=== PATIENT | male | born 1940 | race Caucasian/White ===

== ENCOUNTER → 2024-01-21 | Outpatient (CLI) | payer OTHER | END | disposition home or self-care (01) | LOC: XYW 13:58 | PROVIDERS: ATTEND Student in an Organized Health Care Education/Training Program | DX: R07.9 Chest pain, unspecified (principal); I51.89 Other ill-defined heart diseases | CPT/HCPCS: 93306 ==

== ENCOUNTER → 2024-01-23 | Outpatient (CLI) | payer OTHER ==
[2024-01-23 07:03] LABS: Urine Bacteria None Seen /hpf (None Seen)
[2024-01-23 07:12] LABS: Urine Blood Negative /uL (Negative); Urine Clarity Clear (Clear); Urine Color Yellow (Yellow); Urine Protein, UAD Negative (Negative); Urine Specific Gravity 1.015 (1.001-1.035); Urine Urobilinogen Normal (Negative); Urine WBC 2 /hpf (0 - 3); Urine pH 5.5 (5.0-9.0)
[2024-01-23 07:16] LABS: Basophils # (auto) 0.1 10 ^3/uL (0-0.2); Basophils % (auto) 0.9 % (0.0-2.0); Eosinophils # (auto) 0.2 10 ^3/uL (0-0.8); Eosinophils % (auto) 2.6 % (0.0-7.0); Hematocrit 43.7 % (41.0-53.0); Hemoglobin 14.9 g/dL (13.5-17.5); Lymphocytes # (auto) 2.4 10 ^3/uL (0.4-5.4); Lymphocytes % (auto) 26.7 % (10.0-50.0); Mean Corpuscular Hemoglobin 30.1 pg (28.0-32.0); Mean Corpuscular Volume 88.5 fL (80.0-100.0); Monocytes # (auto) 0.7 10 ^3/uL (0-1.3); Monocytes % (auto) 7.3 % (0.0-12.0); Neutrophils # (auto) 5.7 10 ^3/uL (1.6-8.6); Neutrophils % (auto) 62.5 % (37.0-80.0); Nucleated Red Blood Cells % 0.1 %; Red Blood Cells 4.94 10^6/uL (4.5-5.90); Red Cell Distribution Width 14.7 % (11.8-14.3); White Blood Cell 9.2 10^3/uL (4.4-10.8)
[2024-01-23 07:30] LABS: Alanine Aminotransferase 27 U/L (7-40); Albumin 4.2 g/dL (3.2-4.8); Alkaline Phosphatase 80 U/L (46-116); Anion Gap 5 (5-15); Aspartate Aminotransferase 27 U/L (13-40); BUN/Creatinine Ratio 10.2 (10.0-20.0); Blood Urea Nitrogen 10 mg/dL (9-23); Calcium 9.9 mg/dL (8.5-10.1); Carbon Dioxide 28 mmol/L (20-30); Chloride 107 mmol/L (98-107); Glucose 150 mg/dL (74-106); LDL Cholesterol 75 mg/dL (< 100); Potassium 3.8 mmol/L (3.5-5.1); Sodium 140 mmol/L (136-145); Triglycerides 164 mg/dL (< 150)
[2024-01-23 07:31] LABS: Bilirubin, Total 0.7 mg/dL (0.2-1.0); Cholesterol 130 mg/dL (< 200); HDL Cholesterol 34 mg/dL (40-59); Total Protein 7.4 g/dL (5.7-8.2)
[2024-01-23 07:37] LABS: Creatinine, Urine 94.6 mg/dL (30.0-125.0)
== END | disposition home or self-care (01) ==
LOC: LAB 06:50
PROVIDERS: ATTEND Internal Medicine
DX: E11.65 Type 2 diabetes mellitus with hyperglycemia (principal); E78.5 Hyperlipidemia, unspecified
CPT/HCPCS: 36415; 80053; 80061; 81001; 82043; 82570; 83036; 83880; 85025

== ENCOUNTER → 2024-01-23 | Outpatient (CLI) | payer OTHER ==
[~2024-01-23] VITALS: Ht 175.3 cm; Wt 86.2 kg
[2024-01-23] MEDS: ADENOSINE 72 MG in GIVE UN-DILUTED 0 ML IV ONE (08:42)
== END | disposition home or self-care (01) ==
LOC: XYW 07:13
PROVIDERS: ATTEND Student in an Organized Health Care Education/Training Program
DX: R07.9 Chest pain, unspecified (principal); I10 Essential (primary) hypertension; E11.9 Type 2 diabetes mellitus without complications; E78.5 Hyperlipidemia, unspecified; I25.9 Chronic ischemic heart disease, unspecified; Z91.010 Allergy to peanuts; R06.02 Shortness of breath
CPT/HCPCS: 78452; 93017; A9500; J0153

== ENCOUNTER 2024-02-06 14:58 | Emergency (ER) | payer OTHER ==
[~2024-02-06] VITALS: Ht 175.3 cm; Wt 86.3 kg
[2024-02-06 15:12] VITALS: BP 169/88; RESP 17; O2SAT 98
[2024-02-06 16:32] LABS: Basophils # (auto) 0.1 10 ^3/uL (0-0.2); Basophils % (auto) 1.2 % (0.0-2.0); Eosinophils # (auto) 0.3 10 ^3/uL (0-0.8); Eosinophils % (auto) 4.4 % (0.0-7.0); Hematocrit 38.3 % (41.0-53.0); Hemoglobin 13.5 g/dL (13.5-17.5); Lymphocytes # (auto) 1.4 10 ^3/uL (0.4-5.4); Lymphocytes % (auto) 22.4 % (10.0-50.0); Mean Corpuscular Hemoglobin 30.8 pg (28.0-32.0); Mean Corpuscular Hgb Conc. 35.3 g/dL (32.0-36.0); Mean Corpuscular Volume 87.1 fL (80.0-100.0); Monocytes # (auto) 0.7 10 ^3/uL (0-1.3); Monocytes % (auto) 10.8 % (0.0-12.0); Neutrophils # (auto) 3.7 10 ^3/uL (1.6-8.6); Neutrophils % (auto) 61.2 % (37.0-80.0); Nucleated Red Blood Cells % 0.1 %; Red Cell Distribution Width 14.7 % (11.8-14.3); White Blood Cell 6.1 10^3/uL (4.4-10.8)
[2024-02-06 16:45] VITALS: PULSE 73
[2024-02-06 16:45] LABS: INR 1.08 (0.9-1.15); Partial Thromboplastin Time 26.8 SEC (24.5-34.5); Prothrombin Time 11.4 sec (9.3-11.8)
[2024-02-06 16:55] LABS: Alanine Aminotransferase 31 U/L (7-40); Albumin 3.3 g/dL (3.2-4.8); Alkaline Phosphatase 86 U/L (46-116); Anion Gap 7 (5-15); Aspartate Aminotransferase 30 U/L (13-40); BUN/Creatinine Ratio 7.7 (10.0-20.0); Bilirubin, Total 0.5 mg/dL (0.2-1.0); Blood Urea Nitrogen 7 mg/dL (9-23); Calcium 9.1 mg/dL (8.5-10.1); Carbon Dioxide 28 mmol/L (20-30); Chloride 105 mmol/L (98-107); Glucose 126 mg/dL (74-106); Potassium 3.3 mmol/L (3.5-5.1); Sodium 140 mmol/L (136-145); Total Protein 6.5 g/dL (5.7-8.2)
[2024-02-06] MEDS ORDERED: ACET500T58 PO (18:20)
[2024-02-06] MEDS ORDERED: ALBUAER3 IN (18:20)
[2024-02-06] MEDS ORDERED: DEX4T PO (18:20)
[2024-02-06] MEDS ORDERED: DOXY-286 PO (18:20)
[2024-02-06] MEDS ORDERED: MECL-90 PO (18:22)
[2024-02-06] MEDS ORDERED: ACETAMINOPHEN 500 MG TAB PO ONE (18:30)
== END 2024-02-06 20:00 | disposition home or self-care (01) ==
LOC: ER 14:58
DX: R42 Dizziness and giddiness (principal); R07.89 Other chest pain; J20.9 Acute bronchitis, unspecified; I10 Essential (primary) hypertension
CPT/HCPCS: 36415; 70450; 71250; 72125; 74176; 80053; 83880; 84484; 85025; 85379; 85610; 85730; 93005

== ENCOUNTER → 2024-03-25 | Outpatient (CLI) | payer OTHER ==
[~2024-03-25] MED LIST: ACET500T58 PO; ALBUAER3 IN; ALBUTEROL SULF 2.5 MG/0.5ML(0.5%) NEB SOLN ONE; ATEN-60 PO; ATOR-507 PO; CLOP75TA28 PO; DEX4T PO; DOXY-286 PO; ESMOLOL HCL 10 ML IV ONE; FURO20TA3 PO; GLIP10TA9 PO; INSUINJ37 SC; LIDOCAINE 2% (LOCAL ANESTH.) PF 5ml SDV ONE; LISI20TA56 PO; MECL-90 PO; METH50006 SL; MIDAZOLAM HCL 2MG/2ML 2ml VIAL (1mg/ml) ONE; OMEP20TA PO; ONDANSETRON HCL 4 MG/2 ML VIAL ONE; PROPOFOL 10 MG/ML 20 ML IV ONE; ROCURONIUM 10MG/ML 10ML VIAL IV ONE; SUGAMMADEX 200mg/2ml Vial (100MG/ML) IV ONE; TAMS0.4C36 PO; [UNRECOGNIZED DRUG - CODE] OR; fentaNYL CITRATE 5 ML ONE
== END | disposition home or self-care (01) ==
LOC: RT 08:51
PROVIDERS: ATTEND Internal Medicine Pulmonary Disease
DX: R06.02 Shortness of breath (principal); J84.10 Pulmonary fibrosis, unspecified
CPT/HCPCS: 94060; 94727; 94729

== ENCOUNTER → 2024-04-02 | Outpatient (CLI) | payer OTHER ==
[~2024-04-02] MED LIST changes: -ALBUTEROL SULF 2.5 MG/0.5ML(0.5%) NEB SOLN ONE; -ESMOLOL HCL 10 ML IV ONE; -LIDOCAINE 2% (LOCAL ANESTH.) PF 5ml SDV ONE; -MIDAZOLAM HCL 2MG/2ML 2ml VIAL (1mg/ml) ONE; -ONDANSETRON HCL 4 MG/2 ML VIAL ONE; -PROPOFOL 10 MG/ML 20 ML IV ONE; -ROCURONIUM 10MG/ML 10ML VIAL IV ONE; -SUGAMMADEX 200mg/2ml Vial (100MG/ML) IV ONE; -fentaNYL CITRATE 5 ML ONE
[2024-04-02 09:34] LABS: Triglycerides 125 mg/dL (< 150)
[2024-04-02 09:35] LABS: LDL Cholesterol 85 mg/dL (< 100)
[2024-04-02 09:36] LABS: HDL Cholesterol 33 mg/dL (40-59)
[2024-04-02 09:37] LABS: Cholesterol 134 mg/dL (< 200)
== END | disposition home or self-care (01) ==
LOC: LAB 08:16
PROVIDERS: ATTEND Internal Medicine
DX: E11.9 Type 2 diabetes mellitus without complications (principal)
CPT/HCPCS: 36415; 80061; 83036

== ENCOUNTER 2024-04-03 09:43 | Day surgery (SDC) | payer OTHER ==
[2024-04-02 08:26] LABS: Urine Bacteria None Seen /hpf (None Seen)
[2024-04-02 08:31] LABS: Basophils # (auto) 0.1 10 ^3/uL (0-0.2); Basophils % (auto) 1.2 % (0.0-2.0); Eosinophils # (auto) 0.2 10 ^3/uL (0-0.8); Eosinophils % (auto) 2.8 % (0.0-7.0); Hematocrit 39.3 % (41.0-53.0); Hemoglobin 13.7 g/dL (13.5-17.5); Lymphocytes # (auto) 2.1 10 ^3/uL (0.4-5.4); Lymphocytes % (auto) 29.9 % (10.0-50.0); Mean Corpuscular Hemoglobin 30.9 pg (28.0-32.0); Mean Corpuscular Hgb Conc. 34.8 g/dL (32.0-36.0); Mean Corpuscular Volume 88.7 fL (80.0-100.0); Monocytes # (auto) 0.6 10 ^3/uL (0-1.3); Monocytes % (auto) 8.9 % (0.0-12.0); Neutrophils % (auto) 57.2 % (37.0-80.0); Platelet Count (auto) 225 10^3/uL (140-450); Red Blood Cells 4.43 10^6/uL (4.5-5.90); Red Cell Distribution Width 14.4 % (11.8-14.3)
[2024-04-02 08:42] LABS: Urine Blood Negative /uL (Negative); Urine Clarity Clear (Clear); Urine Color Yellow (Yellow); Urine Hyaline Cast FEW /lpf (0 - 2); Urine Mucus FEW (None Seen); Urine Protein, UAD Negative (Negative); Urine Specific Gravity 1.023 (1.001-1.035); Urine Urobilinogen Normal (Negative); Urine WBC <1 /hpf (0 - 3); Urine pH 5.5 (5.0-9.0)
[2024-04-02 08:55] LABS: INR 1.08 (0.9-1.15); Partial Thromboplastin Time 28.3 SEC (24.5-34.5); Prothrombin Time 11.4 sec (9.3-11.8)
[2024-04-02 09:38] LABS: Alanine Aminotransferase 33 U/L (7-40); Alkaline Phosphatase 97 U/L (46-116); Anion Gap 7 (5-15); BUN/Creatinine Ratio 11.3 (10.0-20.0); Blood Urea Nitrogen 12 mg/dL (9-23); Calcium 9.8 mg/dL (8.7-10.4); Carbon Dioxide 25 mmol/L (20-30); Chloride 108 mmol/L (98-107); Glucose 114 mg/dL (74-106); Potassium 4.1 mmol/L (3.5-5.1); Sodium 140 mmol/L (136-145)
[2024-04-02 09:39] LABS: Albumin 4.2 g/dL (3.2-4.8); Aspartate Aminotransferase 26 U/L (13-40)
[2024-04-02 09:40] LABS: Bilirubin, Total 0.6 mg/dL (0.2-1.0)
[~2024-04-03] VITALS: Ht 175.3 cm; Wt 83.9 kg
[~2024-04-03 09:43] MED LIST changes: -ALBUAER3 IN; -DEX4T PO; -DOXY-286 PO; -MECL-90 PO; -TAMS0.4C36 PO; +TAMS0.4C39 PO
[2024-04-03] MEDS ORDERED: SUGAMMADEX 200mg/2ml Vial (100MG/ML) IV ONE (09:44)
[2024-04-03] MEDS ORDERED: ROCURONIUM 10MG/ML 10ML VIAL IV ONE (09:44)
[2024-04-03] MEDS ORDERED: CIPROFLOXACIN 400MG/200ML 200 ML IV ONE (10:42)
[2024-04-03] MEDS ORDERED: CHLORHEXIDINE 4% TOPICAL soln 118ml TOP ONE (12:46)
[2024-04-03 14:20] VITALS: TEMP 97.5; O2SAT 97
[2024-04-03] MEDS ORDERED: HYDROmorphone HCL 2 MG/ML VL/or syr IV PRN ×2 (14:45)
[2024-04-03] MEDS: ONDANSETRON HCL 4 MG/2 ML VIAL IV ONE (15:08)
[2024-04-03 15:50] VITALS: BP 138/71; PULSE 56; RESP 19; O2SAT 98
== END 2024-04-03 15:56 | disposition home or self-care (01) ==
LOC: SUR 09:43
PROVIDERS: ATTEND Urology
DX: N40.1 Benign prostatic hyperplasia with lower urinary tract symptoms (principal); I11.0 Hypertensive heart disease with heart failure; I50.9 Heart failure, unspecified; E11.9 Type 2 diabetes mellitus without complications; K21.9 Gastro-esophageal reflux disease without esophagitis; Z79.899 Other long term (current) drug therapy; Z95.5 Presence of coronary angioplasty implant and graft; Z86.73 Personal history of transient ischemic attack (TIA), and cerebral infarction without residual deficits; Z87.09 Personal history of other diseases of the respiratory system; Z98.890 Other specified postprocedural states; Z88.8 Allergy status to other drugs, medicaments and biological substances; Z91.041 Radiographic dye allergy status
CPT/HCPCS: 36415; 52601; 80053; 81001; 82962; 85025; 85610; 85730; 87086; 88305; 88342; J0744; J2001; J2250; J2405; J2704; J3010

== ENCOUNTER → 2024-06-02 | Outpatient (CLI) | payer OTHER ==
[2024-06-02 08:39] LABS: Potassium 3.7 mmol/L (3.5-5.1)
== END | disposition home or self-care (01) ==
LOC: LAB 08:02
PROVIDERS: ATTEND Internal Medicine
DX: I10 Essential (primary) hypertension (principal); E11.9 Type 2 diabetes mellitus without complications; J44.9 Chronic obstructive pulmonary disease, unspecified; E78.5 Hyperlipidemia, unspecified
CPT/HCPCS: 36415; 82550; 83735; 84132; 84443

== ENCOUNTER 2024-07-12 19:03 | Inpatient (IN) | payer OTHER ==
[~2024-07-12] VITALS: Ht 175.3 cm; Wt 85.1 kg
--- NOTE | 2024-07-12 19:19 | ED.PDOC ---
HPI Comments 83 y.o male with PMH of MO x3, pulmonary fibrosis, COPD, DM, HTN, CVA, and PTCA x6, presents to the ED for a chief complaint of chest pain associated with SOB that started today around 1000am. Patient reports pain is constant, sharp in nature, non radiating, and has no alleviating factors. Patient ran out of his NTG at home. Patient reports chest pain now is similar to his previous MO's. Patient denies any nausea, vomiting, diarrhea, abdominal pain, fever, chills, leg swelling, or back pain. Patient denies any substance, alcohol or tobacco use. Chief Complaint: Chest Pain Time Seen by MD: 19:04 Primary Care Provider: FAUSTO Reviewed Notes: Nurses Notes, Medications, Allergies Allergies: Coded Allergies: Diphenhydramine (Unverified Allergy, Intermediate, Rash, muscle cramps, 04/02/24) Iodine (Verified Allergy, Unknown, 01/23/24) Metformin (Unverified Adverse Reaction, Intermediate, Rash, muscle cramps, diarrhea, 04/02/24) Home Meds Active Scripts Acetaminophen (Acetaminophen) 500 Mg Tab, 500 MG PO QIDPRN PRN for 10 Days, #40 TAB Prov:MADDIE CALL S DO 02/06/24 Reported Medications Mecobalamin (B12) 5,000 Mcg Sub, 5000 MCG SL DAILY, INJ 04/02/24 Chromium-Cinnamon (CINNAMON PLUS CHROMIUM) 1 Cap Cap, 1 CAP OR DAILY, CAP 04/02/24 Atorvastatin Calcium (Lipitor) 40 Mg Tab, 40 MG PO DAILY, TAB 04/02/24 Clopidogrel Bisulfate (Plavix) 75 Mg Tab, 75 MG PO DAILY, TAB 04/02/24 Lisinopril (Lisinopril) 20 Mg Tab, 10 MG PO QPM, TAB 24 Glipizide (Glipizide) 10 Mg Tab, 10 MG PO DAILY, TAB 24 Omeprazole (Gnp Omeprazole) 20 Mg Tab, 20 MG PO QAM, TAB 04/02/24 Atenolol (Atenolol) 25 Mg Tab, 25 MG PO QPM, TAB 04/02/24 Tamsulosin Hcl (Tamsulosin Hcl) 0.4 Mg Cap, 0.4 MG PO DAILY, CAP 04/02/24 Furosemide (Furosemide) 20 Mg Tab, 20 MG PO DAILY, TAB 04/02/24 Insulin Glargine (Lantus Solostar) 100 Unit/Ml Inj, 30 ML SC QPM, INJ 04/02/24 Information Source: Patient Mode of Arrival: Ambulatory Severity: Moderate Timing: Hours Duration: Since onset Location: Substernal Quality: Sharp Onset: At Rest Cardiac Risk Factors: HTN, Diabetes History of: MO Associated Signs and Symptoms: SOB Past Medical History PAST MEDICAL HISTORY: COPD, CVA, DM, HTN, MO (3) Past Medical History (Other): pulmonary fibrosis Surgical History: PTCA Family History Family History: Reviewed,noncontributory to illness Social History Smoker: Non-Smoker Alcohol: Denies ETOH Use Drugs: Denies Drug Use Lives In: Home Constitutional: denies: chills, diaphoresis, fatigue, fever, malaise, sweats, weakness, others EENTM: denies: blurred vision, double vision, ear bleeding, ear discharge, ear drainage, ear pain, ear ringing, eye pain, eye redness, hearing loss, mouth pain, mouth swelling, nasal discharge, nose bleeding, nose congestion, nose pain, photophobia, tearing, throat pain, throat swelling, voice changes, others Respiratory: denies: cough, hemoptysis, orthopnea, SOB at rest, shortness of breath, SOB with excertion, stridor, wheezing, others Cardiovascular: denies: chest pain, dizzy spells, diaphoresis, Dyspnea on exertion, edema, irregular heart beat, left arm pain, lightheadedness, palpitations, PND, syncope, others Gastrointestinal: denies: abdomen distended, abdominal pain, blood streaked bowels, constipated, diarrhea, dysphagia, difficulty swallowing, hematemesis, melena, nausea, poor appetite, poor fluid intake, rectal bleeding, rectal pain, vomiting, others Genitourinary: denies: burning, dysuria, flank pain, frequency, hematuria, incontinence, penile discharge, penile sore, pain, testicle pain, testicle swelling, urgency, others Neurological: denies: dizziness, fainting, headache, left sided numbness, left sided weakness, numbness, paresthesia, pre-existing deficit, right sided numbne ss, right sided weakness, seizure, speech problems, tingling, tremors, weakness, others Musculoskeletal: denies: back pain, gout, joint pain, joint swelling, muscle pain, muscle stiffness, neck pain, others Integumetry: denies: bruises, change in color, change in hair/nails, dryness, laceration, lesions, lumps, rash, wounds, others Allergic/Immunocompromised: denies: Difficulty Healing, Frequent Infections, Hives, Itching, others Hematologic/Lymphatic: denies: anemia, blood clots, easy bleeding, easy bruising, swollen glands, others Endocrine: denies: excessive hunger, excessive sweating, excessive thirst, excessive urination, flushing, intolerance to cold, intolerance to heat, unexplained weight gain, unexplained weight loss, others Psychiatric: denies: anxiety, bipolar disorder, depression, hopeless, panic disorder, schizophrenia, sleepless, suicidal, others All Other Systems: Reviewed and Negative Physical Exam General Appearance: Moderate Distress HEENT: Normal ENT Inspection, Pharynx Normal, TMs Normal Neck: Full Range of Motion, Non-Tender, Normal, Normal Inspection Respiratory: Chest Non-Tender, No Accessory Muscle Use, Other (Coarse breath sounds) Cardiovascular: No Edema, No JVD, No Murmur, No Gallop, Normal Peripheral Pulses, Regular Rate/Rhythm Breast Exam: Deferred Gastrointestinal: No Organomegaly, Non Tender, No Pulsatile Mass, Normal Bowel Sounds, Soft Genitalia: Deferred Pelvic: Deferred Rectal: Deferred Extremities: No calf tenderness, Normal capillary refill, Normal inspection, Normal range of motion, Non-tender, No pedal edema Musculoskeletal : Apperance: Normal Neurologic: Alert, supervisor of communications II-XII nml as Tested, No Motor Deficits, Normal Affect, Normal Mood, No Sensory Deficits Cerebellar Function: Normal Reflexes: Normal Skin: Dry, Normal Color, Warm Peripheral Pulses: 3+ Radial (R), 3+ Radial (L) Lymphatic: No Adenopathy Was a procedure done? Was a procedure done?: No CP Differential Dx Differential Diagnosis: A-fib, A-Flutter, Angina, Anxiety / Panic Attack, Atrial Dysrhythmia, Electrolyte Disorder, MO Differential Diagnosis: Angina, Chest Wall Pain, Cholelithiasis, Costochondritis, Esophageal reflux/spasm, Gastritis, Myocardial Infarction, Pericarditis X-Ray, Labs, Meds, VS Vital Signs Date Time Temp Pulse Resp B/P (MAP) Pulse Ox O2 Delivery O2 Flow Rate FiO2 11/2/24 19:17 99.6 89 21 141/73 (95) 98 Lab Test 07/12/24 19:12 Range/Units White Blood Count 14.7 H 4.4-10.8 10^3/uL Red Blood Count 4.98 4.5-5.90 10^6/uL Hemoglobin 15.1 13.5-17.5 g/dL Hematocrit 44.5 41.0-53.0 % Mean Corpuscular Volume 89.5 80.0-100.0 fL Mean Corpuscular Hemoglobin 30.3 28.0-32.0 pg Mean Corpuscular Hemoglobin Concent 33.9 32.0-36.0 g/dL Red Cell Distribution Width 14.1 11.8-14.3 % Platelet Count 233 140-450 10^3/uL Mean Platelet Volume 8.5 6.9-10.8 fL Neutrophils (%) (Auto) 72.2 37.0-80.0 % Lymphocytes (%) (Auto) 17.1 10.0-50.0 % Monocytes (%) (Auto) 8.1 0.0-12.0 % Eosinophils (%) (Auto) 1.7 0.0-7.0 % Basophils (%) (Auto) 0.9 0.0-2.0 % Neutrophils # (Auto) 10.6 H 1.6-8.6 10 ^3/uL Lymphocytes # (Auto) 2.5 0.4-5.4 10 ^3/uL Monocytes # (Auto) 1.2 0-1.3 10 ^3/uL Eosinophils # (Auto) 0.2 0-0.8 10 ^3/uL Basophils # (Auto) 0.1 0-0.2 10 ^3/uL Nucleated Red Blood Cells 0.1 % Sodium Level 137 136-145 mmol/L Potassium Level 3.8 3.5-5.1 mmol/L Chloride Level 105 98-107 mmol/L Carbon Dioxide Level 26 20-31 mmol/L Anion Gap 6 5-15 Blood Urea Nitrogen 11 9-23 mg/dL Creatinine 1.04 0.700-1.30 mg/dL Glomerular Filtration Rate Calc 72 >90 mL/min BUN/Creatinine Ratio 10.6 10.0-20.0 Serum Glucose 130 H 74-106 mg/dL Calcium Level 9.9 8.7-10.4 mg/dL Total Bilirubin 0.7 0.2-1.0 mg/dL Aspartate Amino Transferase (AST) 40 13-40 U/L Alanine Aminotransferase (ALT) 46 H 7-40 U/L Alkaline Phosphatase 113 46-116 U/L Troponin I High Sensitivity 5 </=54 ng/L Total Protein 7.6 5.7-8.2 g/dL Albumin 4.4 3.2-4.8 g/dL Patient alert. Complaining of chest pain. EKG reviewed does show chronic changes. Has COPD. Spoke with Cardiology about the EKG pain NSTEMI. Will need cardiac catheterization. Was given aspirin. Was given nitro. WBC slightly elevated. Pneumonitis. Was given steroid pain Was given Levaquin. Cardiac marker within normal limits. Strong risk factors for coronary artery disease. Explained to the patient. Time of 1ST Reevaluation: 19:11 Reevaluation 1ST: Unchanged Patient Education/Counseling: Diagnosis, Treatment Family Education/Counseling: No Family Present Departure 1 Departure Time of Disposition: 20:09 Impression: Primary Impression: NSTEMI (non-ST elevated myocardial infarction) Additional Impression: Pneumonitis Disposition: ADMITTED INPATIENT Admit to: Med Surg Condition: Guarded Critical Care Note Critical Care Time?: Yes Stability Stability form required: No Heart Score Heart Score: Heart Score Response (Comments) Value History Highly Suspicious 2 EKG Normal 0 Age >65 2 Risk Factors >3 or Hx ASHD 2 Troponin Normal limit 0 Total 6 I personally scribed for SIMON PRETTY MD ([email or web address]) on 07/12/24 at 19:19. Electronically submitted by Florinda Nagel ([facility]). SIMON PRETTY MD Jul 12, 2024 19:19
[2024-07-12 19:21] LABS: Basophils # (auto) 0.1 10 ^3/uL (0-0.2); Basophils % (auto) 0.9 % (0.0-2.0); Eosinophils # (auto) 0.2 10 ^3/uL (0-0.8); Eosinophils % (auto) 1.7 % (0.0-7.0); Hematocrit 44.5 % (41.0-53.0); Hemoglobin 15.1 g/dL (13.5-17.5); Lymphocytes # (auto) 2.5 10 ^3/uL (0.4-5.4); Lymphocytes % (auto) 17.1 % (10.0-50.0); Mean Corpuscular Hemoglobin 30.3 pg (28.0-32.0); Mean Corpuscular Hgb Conc. 33.9 g/dL (32.0-36.0); Mean Corpuscular Volume 89.5 fL (80.0-100.0); Monocytes # (auto) 1.2 10 ^3/uL (0-1.3); Monocytes % (auto) 8.1 % (0.0-12.0); Neutrophils # (auto) 10.6 10 ^3/uL (1.6-8.6); Neutrophils % (auto) 72.2 % (37.0-80.0); Nucleated Red Blood Cells % 0.1 %; Platelet Count (auto) 233 10^3/uL (140-450); Red Blood Cells 4.98 10^6/uL (4.5-5.90); Red Cell Distribution Width 14.1 % (11.8-14.3); White Blood Cell 14.7 10^3/uL (4.4-10.8)
[2024-07-12 19:35] LABS: Alanine Aminotransferase 46 U/L (7-40); Albumin 4.4 g/dL (3.2-4.8); Alkaline Phosphatase 113 U/L (46-116); Anion Gap 6 (5-15); Aspartate Aminotransferase 40 U/L (13-40); BUN/Creatinine Ratio 10.6 (10.0-20.0); Bilirubin, Total 0.7 mg/dL (0.2-1.0); Blood Urea Nitrogen 11 mg/dL (9-23); Calcium 9.9 mg/dL (8.7-10.4); Carbon Dioxide 26 mmol/L (20-31); Chloride 105 mmol/L (98-107); Glucose 130 mg/dL (74-106); Potassium 3.8 mmol/L (3.5-5.1); Sodium 137 mmol/L (136-145); Total Protein 7.6 g/dL (5.7-8.2)
--- NOTE | 2024-07-12 19:53 | DVH ---
CHEST RADIOGRAPH Indication:CHEST PAIN Technique: Single frontal view of the chest was obtained Comparison: None FINDINGS: Lines and Tubes: None Lungs: Bibasilar infiltrates and or atelectasis. Pleura: No pleural effusions. No pneumothorax. Cardiomediastinal contours: Upper limits of normal. Bones: No acute osseous abnormality. IMPRESSION: 1. Marginal cardiomegaly. 2. Bibasilar infiltrates and or atelectasis.
[2024-07-12] MEDS: levoFLOXacin 500MG 100 ML IV ONE (20:15)
[2024-07-12] MEDS: IPRATROPIUM BROM 0.5 MG/2.5ML INH SOL NEB ONE (20:27)
[2024-07-12] MEDS: ALBUTEROL SULF 2.5 MG/0.5ML(0.5%) NEB SOLN NEB ONE (20:27)
[2024-07-12] MEDS: methylPREDNISolone SOD SUCC 125 MG/2 ML VL IV ONE (20:54)
[2024-07-12] MEDS: AZITHROMYCIN 500MG/ 250ML 250 ML IV ONE (21:12)
[2024-07-12] MEDS ORDERED: DEXTROSE (50%) 50ML SYRG IV PRN (21:15)
[2024-07-12] MEDS ORDERED: cloNIDine HCL 0.1 MG TAB PO PRN (21:15)
[2024-07-12] MEDS ORDERED: ACETAMINOPHEN 325 MG TAB PO PRN (21:15)
[2024-07-12] MEDS ORDERED: DOCUSATE SOD 100 MG CAP PO PRN (21:15)
[2024-07-12] MEDS ORDERED: ONDANSETRON HCL 4 MG/2 ML VIAL IV PRN (21:15)
[2024-07-12 21:20] VITALS: BP 141/73; PULSE 77; RESP 18; TEMP 99.6; O2SAT 96
[2024-07-12] MEDS: methylPREDNISolone SOD SUCC 40 MG/ML VL IV SCH (22:00)
[2024-07-12] MEDS: SODIUM CHLOR 0.9% PF (SALINE LOCK) 10ML VIAL/SYR IV SCH (22:10)
--- NOTE | 2024-07-12 22:54 | DVHHP2 ---
History of Present Illness Reason for Visit: COPD with acute exacerbation History of Present Illness The patient is a 83-year-old male with multiple past medical history including COPD, CVA, and diabetes mellitus who presented to [facility] ED with complaint of shortness of breaths. Patient reports symptoms progressively get worse with chest pain, sharp in nature, constant, nonradiating, getting worse that prompted this visit. Patient was seen and evaluated in the ED, laboratory data shows WBC 14.7, platelets 233, sodium 137, potassium 3.8, BUN 11, creatinine 1.04, glucose 130, AST 40, ALT 46, troponin 5, blood pressure 141/73, heart rate 77, temperature 99.6 F, O2 saturation 96% on oxygen. Chest x-ray revealing marginal cardiomegaly, bibasilar infiltrate and or atelectasis. Please see medication orders section in the computer. On my assessment, patient denied chest pain at this moment, no headache, no dizziness, no diaphoresis, no shortness of breath, no nausea, no vomiting, no fever, no chills. Patient was admitted for further evaluation and medical management. Past Medical History COPD, CVA, DM, HTN, ID (3), Pulmonary fibrosis Past Surgical History PTCA x6 Family History Reviewed, noncontributory to the management of this case. Past Social History The patient lives at home, denies smoking, alcohol or illicit drugs abuse. Review of Systems Constitutional: Yes: Weakness; No: Fever, Chills, Sweats, Malaise, Other Eyes: No: Pain, Vision change, Conjunctivae inflammation, Eyelid inflammation, Other, Redness ENT: No: Ear pain, Ear discharge, Nose pain, Nose discharge, Nose congestion, Mouth pain, Mouth swelling, Throat pain, Throat swelling, Other Respiratory: Shortness of breath; No: Cough, Dry, SOB with excertion, Wheezing, Hemoptysis, Pleuritic Pain, Sputum, Wheezing, Other Cardiovascular: Chest Pain; No: Palpitations, Orthopnea, Paroxysmal Noc. D yspnea, Edema, Lt Headedness, Other Gastrointestinal: No: Nausea, Vomiting, Abdominal Pain, Diarrhea, Constipation, Melena, Hematochezia, Other Genitourinary: No Dysuria, No Frequency, No Incontinence, No Hematuria, No Retention, No Other Musculoskeletal: No: other, neck pain, shoulder pain, arm pain, back pain, hand pain, leg pain, foot pain Skin: No: Rash, Lesions, Jaundice, Bruising, Other Neurological: No: Weakness, Numbness, Incoordination, Change in speech, Confusion, Seizures, Other Allergies: Coded Allergies: Diphenhydramine (Unverified Allergy, Intermediate, Rash, muscle cramps, 04/02/24) Iodine (Verified Allergy, Unknown, 01/23/24) Metformin (Unverified Adverse Reaction, Intermediate, Rash, muscle cramps, diarrhea, 04/02/24) Medications Current Medications Medications Dose Ordered Sig/Dano Route Start Time Stop Time Status Last Admin Dose Admin Azithromycin 250 ml @ 125 mls/hr DAILY IV 07/13/24 10:00 Albuterol 2.5 mg Q4HPRN PRN NEB 07/12/24 21:15 Ipratropium [place] 0.5 mg Q4HPRN PRN NEB 07/12/24 21:15 Methylprednisolone Sodium Succinate 40 mg Q8HR IV 07/12/24 22:00 Famotidine 20 mg Q12HR IV 07/12/24 22:00 Atorvastatin Calcium 20 mg HS PO 07/13/24 22:00 Clopidogrel Bisulfate 75 mg DAILY PO 07/13/24 10:00 Diagnostic Test (Pha) 1 strip ACHS 07/12/24 22:00 Insulin Human Regular ACHS SC 07/12/24 22:00 Dextrose 50 ml UD PRN IV 07/12/24 21:15 Sodium Chloride 10 ml Q8HR IV 07/12/24 22:00 07/12/24 22:10 10 ML Acetaminophen/ Hydrocodone Bitart 1 tab Q4HP PRN PO 07/12/24 21:15 Ondansetron HCl 4 mg Q4HP PRN IV 07/12/24 21:15 Docusate Sodium 100 mg BIDPRN PRN PO 07/12/24 21:15 Acetaminophen 500 mg Q6HP PRN PO 07/12/24 21:15 Atenolol 25 mg BID PO 07/12/24 22:00 Clonidine HCl 0.1 mg Q4HP PRN PO 07/12/24 21:15 Exam Vital Signs Vital Signs Date Time Temp Pulse Resp B/P (MAP) Pulse Ox O2 Delivery O2 Flow Rate FiO2 07/12/24 21:20 99.6 77 18 141/73 96 21 99.6 07/12/24 20:33 Room Air* 0 General Appearance: Alert, Oriented X3, Cooperative, No acute distress HEENT: Atraumatic, PERRLA, EOMI, Mucous membr. moist/pink Respiratory: Clear to auscultation, Normal air movement Cardiovascular: Regular rate, Normal S1, Normal S2, No murmurs Abdominal: Normal bowel sounds, Soft, No tenderness, No hepatospenomegaly, No masses Extremities: No clubbing, No cyanosis, No edema, Normal pulses, No tenderness/swelling Skin: No rashes, No breakdown, No significant lesion Neuro: Normal speech, Normal tone, Sensation intact, Cranial nerves 3-12 NL, Reflexes 2+, Other (Generalized weakness) Psych/Mental Status: Mental status NL, Mood NL Labs/Xrays Labs Test 07/12/24 22:08 07/12/24 22:04 07/12/24 19:12 Range/Units POC Glucose 204 H 70-106 mg/dl Troponin I High Sensitivity 4 </=54 ng/L White Blood Count 14.7 H 4.4-10.8 10^3/uL Red Blood Count 4.98 4.5-5.90 10^6/uL Hemoglobin 15.1 13.5-17.5 g/dL Hematocrit 44.5 41.0-53.0 % Mean Corpuscular Volume 89.5 80.0-100.0 fL Mean Corpuscular Hemoglobin 30.3 28.0-32.0 pg Mean Corpuscular Hemoglobin Concent 33.9 32.0-36.0 g/dL Red Cell Distribution Width 14.1 11.8-14.3 % Platelet Count 233 140-450 10^3/uL Mean Platelet Volume 8.5 6.9-10.8 fL Neutrophils (%) (Auto) 72.2 37.0-80.0 % Lymphocytes (%) (Auto) 17.1 10.0-50.0 % Monocytes (%) (Auto) 8.1 0.0-12.0 % Eosinophils (%) (Auto) 1.7 0.0-7.0 % Basophils (%) (Auto) 0.9 0.0-2.0 % Neutrophils # (Auto) 10.6 H 1.6-8.6 10 ^3/uL Lymphocytes # (Auto) 2.5 0.4-5.4 10 ^3/uL Monocytes # (Auto) 1.2 0-1.3 10 ^3/uL Eosinophils # (Auto) 0.2 0-0.8 10 ^3/uL Basophils # (Auto) 0.1 0-0.2 10 ^3/uL Nucleated Red Blood Cells 0.1 % Sodium Level 137 136-145 mmol/L Potassium Level 3.8 3.5-5.1 mmol/L Chloride Level 105 98-107 mmol/L Carbon Dioxide Level 26 20-31 mmol/L Anion Gap 6 5-15 Blood Urea Nitrogen 11 9-23 mg/dL Creatinine 1.04 0.700-1.30 mg/dL Glomerular Filtration Rate Calc 72 >90 mL/min BUN/Creatinine Ratio 10.6 10.0-20.0 Serum Glucose 130 H 74-106 mg/dL Calcium Level 9.9 8.7-10.4 mg/dL Total Bilirubin 0.7 0.2-1.0 mg/dL Aspartate Amino Transferase (AST) 40 13-40 U/L Alanine Aminotransferase (ALT) 46 H 7-40 U/L Alkaline Phosphatase 113 46-116 U/L Total Protein 7.6 5.7-8.2 g/dL Albumin 4.4 3.2-4.8 g/dL PATIENT: MISHEL CALVIN ACCT: [id number] UNIT: [id number] : 1940 LOC: ER ROOM / BED: / AGE / SEX: 83 / M ADM STATUS: REG ER SERVICE 03 ORDERING PHYSICIAN: SIMON PRETTY MD PROCEDURE(s): CXRP - CHEST PORTABLE REASON: CHEST PAIN ORDER NUMBER(s): [id number], ACCESSION NUMBER(s): [id number] CHEST RADIOGRAPH Indication:CHEST PAIN Technique: Single frontal view of the chest was obtained Comparison: None FINDINGS: Lines and Tubes: None Lungs: Bibasilar infiltrates and or atelectasis. Pleura: No pleural effusions. No pneumothorax. Cardiomediastinal contours: Upper limits of normal. Bones: No acute osseous abnormality. IMPRESSION: 1. Marginal cardiomegaly. 2. Bibasilar infiltrates and or atelectasis. Assessment/Plan Assessment/Plan Acute chest pain Leukocytosis, unspecified Pneumonia, unspecified organism COPD with acute exacerbation Plan 1. Admit to telemetry unit 2. Breathing treatment 3. Pain control management 4. IV antibiotic management 5. Management of fluids and electrolytes 6. Consultation for hospitalist 7. Diagnostic test chest x-ray 8. DVT prophylaxis on aspirin 9. Repeat labs CBC, CMP in a.m. 10. Home medication reviewed and reconciled 11. Continue with current medical management 12. Treatment plan discussed with patient and RN. Patient verbalized understanding. Plan discussed with: Patient, Other (RN) My Orders Orders - SRIRAM SNOW DNP Procedure Category Date Status Time Azithromycin 500mg/ PHA 07/13/24 In Process 250ml (Zithromax 50 10:00 Albuterol Medneb PHA 07/12/24 In Process (Ventolin Medneb) 21:15 Ipratropium Medneb PHA 07/12/24 In Process (Atrovent Medneb) 21:15 Methylprednisolone PHA 07/12/24 In Process Sod Succ (Solu Medrol 22:00 Famotidine Injection PHA 07/12/24 In Process (Pepcid Injection) 22:00 Clopidogrel Bisulfate PHA 07/13/24 In Process (Plavix) 10:00 Consistent DIET 07/13/24 Transmitted Carb(Ccho)Diabetes Breakfast Glucose Blood PHA 07/12/24 In Process (Accu-Chek Comfort 22:00 Insulin R (Human) PHA 07/12/24 In Process (Insulin R) 22:00 Dextrose 50% Syringe PHA 07/12/24 In Process 21:15 Allergies ROSETTA 07/12/24 In Process 21:15 Code Status CODE 07/12/24 Transmitted 21:15 Sodium Chloride Lock PHA 07/12/24 In Process (Saline Lock Ns) 22:00 Oxygen Per Hour RT 07/12/24 Transmitted 21:15 Hydrocodone-Acet PHA 07/12/24 In Process 5/325mg Tab ([place] 21:15 Ondansetron Hcl PHA 07/12/24 In Process (Zofran) 21:15 Docusate Sodium PHA 07/12/24 In Process Capsule (Colace 21:15 Fall Risk Precautions ROSETTA 07/12/[address] 21:15 Complete Blood Count LAB 07/13/24 Verified 04:00 Comprehensive LAB 07/13/24 Verified Metabolic Panel 04:00 Condition: Serious ROSETTA 07/12/24 In Process 21:15 Acetaminophen Tablet PHA 07/12/24 In Process (Tylenol Tablet) 21:15 Sequential ROSETTA 07/12/24 In Process Compression Device *Consult CONS 07/12/24 Transmitted / 21:15 Atenolol Tablet PHA 07/12/24 In Process (Tenormin Tablet) 22:00 Clonidine Hcl Tablet PHA 07/12/24 In Process (Catapres Tablet) 21:15 Atorvastatin (Lipitor) PHA 07/13/24 In Process 22:00 Problem List: (1) Acute chest pain (2) Leukocytosis, unspecified (3) COPD with acute exacerbation (4) Pneumonia, unspecified organism Date of Service: Jul 12, 2024 Billing Provider: SRIRAM SNOW DNP Common Visit Codes: [id number] INP/OBS CARE (HIGH) SRIRAM SNOW DNP Jul 12, 2024 22:54
[2024-07-12] MEDS ORDERED: NITROGLYCERIN 0.4 MG SL TAB SL PRN (23:00)
[2024-07-12] MEDS ORDERED: MORPHINE SULFATE INJ 2 MG/ml SYRG IV PRN (23:00)
[2024-07-12] MEDS: InsuLIN REG 1unit/0.01ml Soln (100units/ml) SC SCH (23:03)
[2024-07-12] MEDS: FAMOTIDINE (10MG/ML) 2ML VL IV SCH (23:03)
[2024-07-12] MEDS: ACCU-CHEK COMFORT CURVE STRIP VI SCH (23:03)
[2024-07-12] MEDS: ATENOLOL 25 MG TAB PO SCH (23:06)
[2024-07-13] VITALS (13 sets, daily range): BP systolic 102–121; BP diastolic 51–66; PULSE 60–84; RESP 16–21; TEMP 97.5–98.8; O2SAT 94–98
[2024-07-13] MEDS: HYDROcodone-ACET 5/325MG TAB PO PRN (01:01)
[2024-07-13] MEDS ORDERED: SAWCAP2 PO (01:32)
[2024-07-13] MEDS ORDERED: LISI20TA56 PO (01:32)
[2024-07-13] MEDS ORDERED: MELO15TA29 PO (01:32)
[2024-07-13] MEDS ORDERED: OMEP20TA PO (01:32)
[2024-07-13] MEDS ORDERED: ALBUPOW25 XX (01:32)
[2024-07-13] MEDS ORDERED: ATOR-507 PO (01:32)
[2024-07-13] MEDS ORDERED: NITR0.4S29 SL (01:32)
[2024-07-13 05:47] LABS: Basophils # (auto) 0 10 ^3/uL (0-0.2); Basophils % (auto) 0.2 % (0.0-2.0); Eosinophils # (auto) 0 10 ^3/uL (0-0.8); Hematocrit 41.5 % (41.0-53.0); Hemoglobin 14.3 g/dL (13.5-17.5); Lymphocytes # (auto) 0.9 10 ^3/uL (0.4-5.4); Lymphocytes % (auto) 9.7 % (10.0-50.0); Mean Corpuscular Hemoglobin 30.7 pg (28.0-32.0); Mean Corpuscular Hgb Conc. 34.5 g/dL (32.0-36.0); Mean Corpuscular Volume 89.1 fL (80.0-100.0); Monocytes # (auto) 0.2 10 ^3/uL (0-1.3); Monocytes % (auto) 1.8 % (0.0-12.0); Neutrophils # (auto) 7.8 10 ^3/uL (1.6-8.6); Neutrophils % (auto) 88.3 % (37.0-80.0); Platelet Count (auto) 205 10^3/uL (140-450); Red Blood Cells 4.66 10^6/uL (4.5-5.90); Red Cell Distribution Width 13.6 % (11.8-14.3); White Blood Cell 8.8 10^3/uL (4.4-10.8)
[2024-07-13 06:14] LABS: Alanine Aminotransferase 38 U/L (7-40); Albumin 3.9 g/dL (3.2-4.8); Alkaline Phosphatase 96 U/L (46-116); Anion Gap 8 (5-15); Aspartate Aminotransferase 23 U/L (13-40); BUN/Creatinine Ratio 11.1 (10.0-20.0); Blood Urea Nitrogen 11 mg/dL (9-23); Calcium 9.6 mg/dL (8.7-10.4); Carbon Dioxide 22 mmol/L (20-31); Chloride 105 mmol/L (98-107); Glucose 210 mg/dL (74-106); Potassium 4.4 mmol/L (3.5-5.1); Sodium 135 mmol/L (136-145)
--- NOTE | 2024-07-13 06:15 | ECG ---
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
[2024-07-13] MEDS: CLOPIDOGREL BISULFATE 75 MG TAB PO SCH (08:37)
[2024-07-13 08:49] LABS: INR 1.14 (0.9-1.15); Partial Thromboplastin Time 29.4 SEC (24.5-34.5)
[2024-07-13] MEDS ORDERED: AZITHROMYCIN 500MG/ 250ML 250 ML IV SCH (10:00)
[2024-07-13] MEDS: AZITHROMYCIN 500MG/ 250ML 250 ML IV SCH (10:11)
[2024-07-13 11:42] LABS: Rapid Influenza A Negative (Negative); Rapid Influenza B Negative (Negative)
[2024-07-13 11:43] LABS: COVID19 ANTIGEN SOFIA FIA NEGATIVE (NEGATIVE)
[2024-07-13 11:50] LABS: Urine Bacteria None Seen /hpf (None Seen)
[2024-07-13 11:59] LABS: Urine Blood Negative /uL (Negative); Urine Clarity Clear (Clear); Urine Color Yellow (Yellow); Urine Mucus FEW (None Seen); Urine Protein, UAD TRACE (Negative); Urine Specific Gravity 1.023 (1.001-1.035); Urine Urobilinogen Normal (Negative); Urine WBC 2 /hpf (0 - 3)
[2024-07-13 12:23] LABS: Amphetamine Screen, Urine Neg (NEGATIVE); Barbiturate Scree,Urine Neg (NEGATIVE); Benzodiazephine Screen, Urine Neg (NEGATIVE)
[2024-07-13 12:24] LABS: Cannabinoid Screen, Urine Neg (NEGATIVE); Cocaine Screen, Urine Neg (NEGATIVE); Opiate Scree,Urine Neg (NEGATIVE); Phencyclidine Screen, Urine Neg (NEGATIVE)
--- NOTE | 2024-07-13 13:56 | DVHPNRES ---
Progress Note Date Seen: Jul 13, 2024 Resident Creating Document: RANDY MESA RESIDENT Medical Necessity Reason Pt with a Central, PICC or Fol: No Subjective Review of Systems This is a 83-year-old male patient with PMHx of CAD status post 6 SHANEL 2004 to 2016, history of CVA 2017 status post tPA, COPD on no home oxygen, diabetes mellitus type 2 for the past 15 years on Lantus, BPH status post TURP 2023 who presented to the ER with a chief complaint of chest pain and cough. Patient reports with the chest pain started 07/12 around 10:00 a.m. on rest which waxes and wanes in his located in epigastrium. Chest pain is pressure-like in nature and radiates to both of his shoulders, exacerbates on deep breathing and exertion but does not relieve on rest. He denies taking any nitroglycerin for the chest pain. Associated factors include nausea and dizziness but no vomiting/palpitation/diaphoresis. Patient also reports chronic shortness of breath on activities of daily living and orthopnea and PND, also reports chronic cough with green/yellow phlegm. He did not increase his inhaler usage recently. 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 PMH/PSH: See HPI Social history Works as a teacher, Lives with his , quit smoking, denies drinking or illicit drug use Home medications: Lisinopril 20 mg daily, atorvastatin 40 mg daily, omeprazole 20 mg daily, Lantus 30 units daily, best 3 2 puffs b.i.d. daily, extreme tablet 10 mg daily saw palmetto use. Patient seen and examined at bedside. Not in acute distress, reports feeling fine. Chest x-ray reviewed, shows cardiomegaly with bilateral basilar infiltrate. Echocardiogram/cardiology consultation/COVID and influenza testing pending. Objective vital signs Vital Sign Date Time Temp Pulse Resp B/P (MAP) Pulse Ox O2 Delivery O2 Flow Rate FiO2 07/13/24 09:30 98 Nasal Cannula* 2 28 07/13/24 09:00 97.5 60 21 116/63 (80) 97.5 Total Intake and Output 07/12/24 07/12/24 07/13/24 15:00 23:00 07:00 Intake Total 125 ml 125 ml Output Total 200 ml Balance 125 ml -75 ml medications Current Medications Medications Dose Ordered Sig/Dano Route Start Time Stop Time Status Last Admin Dose Admin Albuterol 2.5 mg Q4HPRN PRN NEB 07/12/24 21:15 Ipratropium [place] 0.5 mg Q4HPRN PRN NEB 07/12/24 21:15 Methylprednisolone Sodium Succinate 40 mg Q8HR IV 07/12/24 22:00 07/13/24 06:17 40 MG Famotidine 20 mg Q12HR IV 07/12/24 22:00 07/13/24 08:37 20 MG Atorvastatin Calcium 20 mg HS PO 07/13/24 22:00 Clopidogrel Bisulfate 75 mg DAILY PO 07/13/24 10:00 07/13/24 08:37 75 MG Diagnostic Test (Pha) 1 strip ACHS 07/12/24 22:00 07/13/24 10:14 1 STRIP Insulin Human Regular ACHS SC 07/12/24 22:00 07/13/24 10:18 6 UNITS Dextrose 50 ml UD PRN IV 07/12/24 21:15 Sodium Chloride 10 ml Q8HR IV 07/12/24 22:00 07/13/24 06:19 10 ML Acetaminophen/ Hydrocodone Bitart 1 tab Q4HP PRN PO 07/12/24 21:15 07/13/24 01:01 1 TAB Ondansetron HCl 4 mg Q4HP PRN IV 07/12/24 21:15 Docusate Sodium 100 mg BIDPRN PRN PO 07/12/24 21:15 Acetaminophen 500 mg Q6HP PRN PO 07/12/24 21:15 Atenolol 25 mg BID PO 07/12/24 22:00 07/13/24 08:37 25 MG Clonidine HCl 0.1 mg Q4HP PRN PO 07/12/24 21:15 Nitroglycerin 0.4 mg Q5MINP PRN SL 07/12/24 23:00 Morphine Sulfate 2 mg Q30M PRN IV 07/12/24 23:00 Azithromycin 250 ml @ 125 mls/hr DAILY IV 07/13/24 10:00 07/16/24 23:55 07/13/24 10:11 125 MLS/HR Insulin Glargine 10 units DAILY@1000 SC 07/14/24 10:00 Ceftriaxone Sodium 50 ml @ 100 mls/hr DAILY@09 IV 07/14/24 09:00 Examination Elderly male patient lying in bed, in no acute distress General: Well-built, afebrile, palor, mucosae are moist Cardiovascular: Regular S1 and S2. No murmurs, gallops or rubs. No JVD elevation. No pedal edema Respiratory: Normal B/L air entry on room air. Dull breath sounds on bibasilar auscultation. Abdomen: Soft, nontender, nondistended, normoactive bowel sounds, no rebound tenderness, no organomegaly, no masses Genitourinary: Deferred MSK/skin: Mobilizes 4 limbs. Skin is dry and warm Neurological: No motor, no sensitive deficits, normal speech. Pupils are isocoric and reactive. Psych/Mental Status: A/Ox4 laboratory and microbiology Laboratory Tests 07/13/24 04:24 Test 07/13/24 04:24 Range/Units Serum Glucose 210 H 74-106 mg/dL Labs and/or images reviewed: Labs reviewed by me, Image(s) reviewed by me Problem List/Assessment/Plan Problem List/Assessment/Plan Community-acquired pneumonia, Gram-positive and Gram-negative IV ceftriaxone and azithromycin starting 07/13 Sputum culture with induction pending Chest x-ray shows bibasilar infiltrate Nebulized treatment with ipratropium and albuterol Influenza and COVID testing negative MRSA nares pending Acute chest pain rule out ACS History of CVA 1 year back status post tPA CAD status post 6DES [id number] Patient does not take aspirin or Plavix at home EKG shows regular rhythm, nonspecific ST changes Troponin 4, 4 , 5 BNP 99 Echocardiogram pending Cardiology consulted Diabetes mellitus type 2-hemoglobin A1c Continue insulin Lantus 10 units daily along with mild ISS Dyslipidemia Atorvastatin 20 mg HS daily Hypertension Continue lisinopril 20 mg daily GERD Continue pantoprazole 40 mg daily Plan discussed with patient and his at bedside, all questions have been answered Goals of care discussed with patient for more than 20 minutes, full code status Case discussed with Dr. Gonzalez Plan discussed with: Patient, Spouse (At bedside) My Orders My Orders Orders - RANDY MESA Procedure Category Date Status Time Azithromycin 500mg/ PHA 07/13/24 In Process 250ml (Zithromax 50 10:00 Vitamin B12 LAB 07/13/24 In Process 08:19 Vitamin D, 25-Hydroxy LAB 07/13/24 In Process 08:19 Mrsa Screen BABAK 07/13/24 Logged 08:19 Respiratory Culture BABAK 07/13/24 Logged W/ Gs 08:19 Sputum Induction RT 07/13/24 Logged 08:19 Pt Request For Service PT 07/13/24 Logged 08:19 Echo 2d Mode Cardiac US 07/13/24 Logged DOP 10:44 Free T3 LAB 07/13/24 In Process 10:46 Free T4 (Free LAB 07/13/24 In Process Thyroxine) 10:46 Incentive Spirometry ORDERS 07/13/24 Transmitted Q 1hr 10:46 Electrocardigram EKG 07/13/24 Logged 10:46 Troponin-I Hs LAB 07/13/24 Logged 10:46 Date of Service: Jul 13, 2024 Billing Provider: DONNA GONZALEZ DO Common Visit Codes: [id number] INP/OBS CARE(HIGH) RANDY MESA RESIDENT Jul 13, 2024 13:56 DONNA GONZALEZ DO Jul 21, 2024 07:14
--- NOTE | 2024-07-13 18:06 | DVHINCON2 ---
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 pt often needs 2 SL NTG but this time ran out and called 911. ecg shows SR< TWI inferiorly. pt had stress mpi done january 2024 showing no ischemia. Past Medical History reviewed Family History: Alcoholism G8 FATHER Alzheimer's disease Allergies: Coded Allergies: Diphenhydramine (Unverified Allergy, Intermediate, Rash, muscle cramps, 04/02/24) Iodine (Verified Allergy, Unknown, 01/23/24) Metformin (Unverified Adverse Reaction, Intermediate, Rash, muscle cramps, diarrhea, 04/02/24) Home Meds Active Scripts Acetaminophen (Acetaminophen) 500 Mg Tab, 500 MG PO QIDPRN PRN for 10 Days, #40 TAB Prov:ISABEL CALLJose COLIVA S DO 02/06/24 Reported Medications Albuterol Sulfate (Albuterol Sulfate) Sulfate Pow, 1 XX, POW 07/13/24 [place]-Zinc (Saw [place] 450-15 mg) 1 Cap Cap, 1 CAP PO, CAP 07/13/24 Atorvastatin Calcium (Lipitor) 40 Mg Tab, 1 TAB PO QPM, #90 TAB 1 Refill 07/13/24 Nitroglycerin (NTROSTAT SUBLINGUAL) 0.4 Mg Sl, 0.4 MG SL PRN, TAB *MAY REPEAT EVERY 5 MINUTES X 3 TOTAL IF NO RELIEF, INITIATE ANALGESIC THERAPY. NOTIFY PHYSICIAN *Do not crush. 07/13/24 Omeprazole (Gnp Omeprazole) 20 Mg Tab, 1 TAB PO DAILY, #90 TAB 1 Refill 07/13/24 Meloxicam (Meloxicam) 15 Mg Tab, 1 TAB PO DAILY, #30 TAB 07/13/24 Lisinopril (Lisinopril) 20 Mg Tab, 1 TAB PO DAILY, #30 TAB 5 Refills 07/13/24 Mecobalamin (B12) 5,000 Mcg Sub, 5000 MCG SL DAILY, INJ 04/02/24 Chromium-Cinnamon (CINNAMON PLUS CHROMIUM) 1 Cap Cap, 1 CAP OR DAILY, CAP 04/02/24 Atorvastatin Calcium (Lipitor) 40 Mg Tab, 40 MG PO DAILY, TAB 04/02/24 Clopidogrel Bisulfate (Plavix) 75 Mg Tab, 75 MG PO DAILY, TAB 04/02/24 Lisinopril (Lisinopril) 20 Mg Tab, 10 MG PO QPM, TAB 04/02/24 Glipizide (Glipizide) 10 Mg Tab, 10 MG PO DAILY, TAB 04/02/24 Omeprazole (Gnp Omeprazole) 20 Mg Tab, 20 MG PO QAM, TAB 04/02/24 Atenolol (Atenolol) 25 Mg Tab, 25 MG PO QPM, TAB 04/02/24 Tamsulosin Hcl (Tamsulosin Hcl) 0.4 Mg Cap, 0.4 MG PO DAILY, CAP 04/02/24 Furosemide (Furosemide) 20 Mg Tab, 20 MG PO DAILY, TAB 04/02/24 Insulin Glargine (Lantus Solostar) 100 Unit/Ml Inj, 30 ML SC QPM, INJ 04/02/24 Current Medications Current Medications Medications (Trade) Dose Ordered Sig/Dano Route PRN Reason Start Time Stop Time Status Last Admin Azithromycin 250 ml @ 125 mls/hr DAILY IV 07/13/24 10:00 07/13/24 08:22 DC Albuterol (Ventolin Medneb) 2.5 mg Q4HPRN PRN NEB SHORTNESS OF BREATH 07/12/24 21:15 Ipratropium [place] (Atrovent Medneb) 0.5 mg Q4HPRN PRN NEB SHORTNESS OF BREATH 07/12/24 21:15 Methylprednisolone Sodium Succinate (Solu Medrol) 40 mg Q8HR IV 07/12/24 22:00 07/13/24 15:03 DC 07/13/24 14:34 Famotidine (Pepcid Injection) 20 mg Q12HR IV 07/12/24 22:00 07/13/24 15:03 DC 07/13/24 08:37 Atorvastatin Calcium (Lipitor) 20 mg HS PO 07/13/24 22:00 Clopidogrel Bisulfate (Plavix) 75 mg DAILY PO 07/13/24 10:00 07/13/24 15:03 DC 07/13/24 08:37 Diagnostic Test (Pha) (Accu-Chek Comfort Curve T) 1 strip ACHS 07/12/24 22:00 07/13/24 16:48 Insulin Human Regular (InsuLIN R) ACHS SC 07/12/24 22:00 07/13/24 16:51 Dextrose 50 ml UD PRN IV Blood Sugar LESS THAN 60 07/12/24 21:15 Sodium Chloride (Saline Lock Ns) 10 ml Q8HR IV 07/12/24 22:00 07/13/24 14:34 Acetaminophen/ Hydrocodone Bitart ([place] 5/325MG Tab) 1 tab Q4HP PRN PO MODERATE PAIN (4-6 PAIN SCALE) 07/12/24 21:15 07/13/24 01:01 Ondansetron HCl (Zofran) 4 mg Q4HP PRN IV NAUSEA / VOMITING 07/12/24 21:15 Docusate Sodium (Colace Capsule) 100 mg BIDPRN PRN PO FOR CONSTIPATION 07/12/24 21:15 Acetaminophen (Tylenol Tablet) 500 mg Q6HP PRN PO PAIN SCALE 1-3 OR TEMP>100.4 07/12/24 21:15 Atenolol (Tenormin Tablet) 25 mg BID PO 07/12/24 22:00 07/13/24 15:03 DC 07/13/24 08:37 Clonidine HCl (Catapres Tablet) 0.1 mg Q4HP PRN PO SBP>150 07/12/24 21:15 07/13/24 15:03 DC Nitroglycerin (Ntrostat Sublingual) 0.4 mg Q5MINP PRN SL FOR CHEST PAIN 07/12/24 23:00 Morphine Sulfate 2 mg Q30M PRN IV FOR CHEST PAIN 07/12/24 23:00 Azithromycin 250 ml @ 125 mls/hr DAILY IV 07/13/24 10:00 07/16/24 23:55 07/13/24 10:11 Insulin Glargine (Lantus) 10 units DAILY@1000 SC 07/14/24 10:00 Ceftriaxone Sodium 50 ml @ 100 mls/hr DAILY@09 IV 07/14/24 09:00 Pantoprazole Sodium (Protonix Tablet) 40 mg DAILY@0600 PO 07/14/24 06:00 Review of Systems 10 pt ros otherwise negative Vital Signs Vital Signs Date Time Temp Pulse Resp B/P (MAP) Pulse Ox O2 Delivery O2 Flow Rate FiO2 07/13/24 13:00 97.7 65 19 102/66 (78) 97 97.7 07/13/24 09:30 Nasal Cannula* 2 28 Physical Exam nad s1 s2 rrr ctab soft nt/nd no edema Labs/Diagnostic Data Labs Test 07/13/24 16:46 07/13/24 15:07 07/13/24 10:50 07/13/24 08:30 Range/Units POC Glucose 221 H 70-106 mg/dl Troponin I High Sensitivity < 3 L </=54 ng/L Influenza Type A Antigen Negative Negative Influenza Type B Antigen Negative Negative SARS-CoV-2 Antigen (Rapid) Negative NEGATIVE Urine Color Yellow Yellow Urine Clarity Clear Clear Urine pH 6.0 5.0-9.0 Urine Specific [place] 1.023 1.001-1.035 Urine Protein Trace H Negative Urine Ketones Negative Negative Urine Blood Negative Negative /uL Urine Nitrite Negative Negative Urine Bilirubin Negative Negative Urine Urobilinogen Normal Negative mg/dL Urine Leukocyte Esterase Negative Negative /uL Urine RBC 3 0 - 3 /hpf Urine WBC 2 0 - 3 /hpf Urine Squamous Epithelial Cells Few <5 /hpf Urine Bacteria None seen None Seen /hpf Urine Mucus Few None Seen Urine Glucose Trace Normal mg/dL Urine Opiates Screen Neg NEGATIVE Urine Fentanyl Screen Neg NEGATIVE Urine Barbiturates Screen Neg NEGATIVE Urine Phencyclidine Screen Neg NEGATIVE Urine Amphetamines Screen Neg NEGATIVE Urine Benzodiazepines Screen Neg NEGATIVE Urine Cocaine Screen Neg NEGATIVE Urine Cannabinoids Screen Neg NEGATIVE Test 07/13/24 04:24 Range/Units White Blood Count 8.8 # 4.4-10.8 10^3/uL Red Blood Count 4.66 4.5-5.90 10^6/uL Hemoglobin 14.3 13.5-17.5 g/dL Hematocrit 41.5 41.0-53.0 % Mean Corpuscular Volume 89.1 80.0-100.0 fL Mean Corpuscular Hemoglobin 30.7 28.0-32.0 pg Mean Corpuscular Hemoglobin Concent 34.5 32.0-36.0 g/dL Red Cell Distribution Width 13.6 11.8-14.3 % Platelet Count 205 140-450 10^3/uL Mean Platelet Volume 9.1 6.9-10.8 fL Neutrophils (%) (Auto) 88.3 H 37.0-80.0 % Lymphocytes (%) (Auto) 9.7 L 10.0-50.0 % Monocytes (%) (Auto) 1.8 0.0-12.0 % Eosinophils (%) (Auto) 0.0 0.0-7.0 % Basophils (%) (Auto) 0.2 0.0-2.0 % Neutrophils # (Auto) 7.8 1.6-8.6 10 ^3/uL Lymphocytes # (Auto) 0.9 0.4-5.4 10 ^3/uL Monocytes # (Auto) 0.2 0-1.3 10 ^3/uL Eosinophils # (Auto) 0 0-0.8 10 ^3/uL Basophils # (Auto) 0 0-0.2 10 ^3/uL Nucleated Red Blood Cells 0.0 % Prothrombin Time 12.0 H 9.3-11.8 sec Prothrombin Time INR 1.14 0.9-1.15 Activated Partial Thromboplast Time 29.4 24.5-34.5 SEC Sodium Level 135 L 136-145 mmol/L Potassium Level 4.4 3.5-5.1 mmol/L Chloride Level 105 98-107 mmol/L Carbon Dioxide Level 22 20-31 mmol/L Anion Gap 8 5-15 Blood Urea Nitrogen 11 9-23 mg/dL Creatinine 0.99 0.700-1.30 mg/dL Glomerular Filtration Rate Calc 77 >90 mL/min BUN/Creatinine Ratio 11.1 10.0-20.0 Serum Glucose 210 H 74-106 mg/dL Calcium Level 9.6 8.7-10.4 mg/dL Total Bilirubin 1.0 0.2-1.0 mg/dL Aspartate Amino Transferase (AST) 23 13-40 U/L Alanine Aminotransferase (ALT) 38 7-40 U/L Alkaline Phosphatase 96 46-116 U/L B-Type Natriuretic Peptide 99.24 0-100 pg/mL Total Protein 7.0 5.7-8.2 g/dL Albumin 3.9 3.2-4.8 g/dL Thyroid Stimulating Hormone (TSH) 0.24 L 0.55-4.78 uIU/mL Assessment ACS hx of cad s/p pci htn hl IDDM ckd Plan/Recommendation pt has classic textbook angina which is accerlerating and undoubtedly has signifcant CAD recommend C for eval at this time given symptoms and recent 7 months stress mpi which was - offered LHC vs medical therapy, pt wishes to proceed with LHC pt clearly aware of severity of underlying cad, high risk nature, possibility of no option or intervention either cont maximal medical therapy iodine contrast allergy--may need pre treatment Plan discussed with: Patient DANILO BLAND MD Jul 13, 2024 18:06
[2024-07-13] MEDS ORDERED: methylPREDNISolone SOD SUCC 1,000 MG in SODIUM CHL 0.9% 250 ML IV ONE (18:15)
[2024-07-13] MEDS: ALBUTEROL SULF 2.5 MG/0.5ML(0.5%) NEB SOLN NEB PRN (20:58)
[2024-07-13] MEDS: IPRATROPIUM BROM 0.5 MG/2.5ML INH SOL NEB PRN (20:58)
[2024-07-13] MEDS: ATORVASTATIN 20 MG TAB PO SCH (21:31)
[2024-07-14] VITALS (13 sets, daily range): BP systolic 102–150; BP diastolic 52–73; PULSE 50–89; RESP 14–71; TEMP 97.6–98.9; O2SAT 16–98
[2024-07-14] MEDS: PANTOPRAZOLE 40 MG TAB PO SCH (06:29)
--- NOTE | 2024-07-14 08:44 | DVHSR ---
APPROVED REPORT EXAM: Two-dimensional and M-mode echocardiogram with Doppler and color Doppler. Blood Pressure: 116/63 mmHg INDICATION EF RISK FACTORS Height: 5'9", Weight: 187 DIMENSIONS LVDd4.0 (3.8-5.7cm)LA (2D)3.6 (1.9-4.0cm)Aortic Root4.1 (2.0-3.7cm) LVDs2.7 (2.5-4.0cm)LA (MM) (1.9-4.0cm)Aortic Cusp Exc2.0 (1.5-2.0cm) EF (%) 60.0 (55-70%)Rt. Atrium3.6 (1.9-4.0cm)Asc. Aorta cm IVSd1.3 (0.7-1.1cm)RV (D)3.8 (1.8-2.4cm) PWd1.2 (0.7-1.1cm) Mitral Valve MitralMitral Stenosis E wave0.71m/sMV Mean GR.mmHg A wave1.07m/sMV Peak GR.mmHg E/A ratio0.72D MVAcm2 DECEL [id number] 1/2 Timems Aortic Valve Aortic ValveAortic Stenosis V10.88m/Pola Mean GR.3mmHg V21.12m/Pola Peak GR.5mmHg LVOT Diameter2.1 (1.8-2.4cm)Doppler AVA2.72cm2 Pulmonic Valve V21.23m/s Tricuspid Valve TR Velocity2.89m/s [id number] Conclusion lvef 55-60% by visual estimate moderate LVH apical hypoknesis mild RV moderate enlargement
[2024-07-14] MEDS: LIDOCAINE 2%HCL (LOCAL ANESTH.) INJ 20ML MDV ONE (11:05)
[2024-07-14] MEDS: fentaNYL CITRATE 100 MCG/2 ML VL ONE (11:05)
[2024-07-14] MEDS: HEPARIN SODIUM (PORCINE) 5000 UNITS/ML 1ML VIAL ONE (11:05)
[2024-07-14] MEDS: MIDAZOLAM HCL 2MG/2ML 2ml VIAL (1mg/ml) ONE (11:05)
[2024-07-14] MEDS: VERAPAMIL 2.5MG/ML INJ 2ML VIAL IV ONE (11:05)
[2024-07-14] MEDS: methylPREDNISolone SOD SUCC 125 MG/2 ML VL ONE (11:06)
[2024-07-14] MEDS: FAMOTIDINE (10MG/ML) 2ML VL IV ONE (11:06)
[2024-07-14] MEDS: SODIUM CHL 0.9% 50 ML ONE (11:06)
[2024-07-14] MEDS: ANGIOMAX 250 MG VIAL IV ONE (11:06)
[2024-07-14 11:16] LABS: Free T3 2.84 pg/mL (2.3-4.2)
[2024-07-14 11:22] LABS: Free T4 (Free Thyroxine) 0.83 ng/dL (0.89-1.76)
[2024-07-14] MEDS ORDERED: IODIXANOL 320MG/ML 100ML BTL IV ONE (11:24)
--- NOTE | 2024-07-14 11:26 | DVHOP2 ---
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 PREOPERATIVE DIAGNOSES: ACS POSTOP DIAGNOSIS: CAD DESCRIPTION OF PROCEDURE: The patient or appropriate family signed informed co nsent understanding the risks, benefits and alternatives of the procedure, they wished to proceed. The patient was brought to the cardiac laborer carpentry dock in [place] state. The patient was prepped in a sterile fashion. Sedation was used per cardiac cath protocol. I administered 2 mL of 2% lidocaine to the right wrist. With an antegrade front wall puncture. I cannulated the right radial artery and placed a 6-[place] slender. Next, an intra-arterial spasmolytic was administered. Next, a - 5 [place] catheter and XB 3.5 guide and were used for coronary angiogram and LVEDP measurement and pressure pullback. At the completion of procedure, all guides and wires were removed, and there were no immediate complications. FINDINGS: RCA: Moderate vessel off the right sinus of Valsalva, there is no severe flow limiting stenosis. patent prox RCA stent. mid to distal RCA has mild to moderate 40% stenosis LEFT MAIN: Moderate size left main, it bifurcates into LAD and circumflex. its short LM. distal LM has disease into LAD. CIRCUMFLEX: Moderate caliber vessel coming off the left main with no flow limiting stenosis. ostial CX has 50% stenosis . OM1 has early takeoff and is stumped 100%. mid CX has widely patent stent giving off OM2 that is moderate size with patent stent. distal CX in av groove is patent LAD: LAD is a moderate caliber vessel coming of the left main. ostial moderate disease to prox LAD has a 80% heavily calcific nodular lesion. mid LAD has stent with 75% iSR within in. CONCLUSIONS: 1. severe LAD stenosis PLAN: Aggressive risk factor modification and medical management for the patient. DAPT x 1 year uninterrupted recommend eval at [place] for cabg eval vs PCI complex high dose anti anginal theapy statin ranexa isosorbide DANILO BLAND MD Jul 14, 2024 11:26
--- NOTE | 2024-07-14 11:28 | DVHPN2 ---
Progress Note Date Seen: Jul 14, 2024 Medical Necessity Reason Pt with a Central, PICC or Fol: No Subjective Other Systems: sp c ath Objective vital signs Vital Sign Date Time Temp Pulse Resp B/P (MAP) Pulse Ox O2 Delivery O2 Flow Rate FiO2 07/14/24 09:00 98.1 58 18 142/73 (96) 96 98.1 07/13/24 20:58 Nasal Cannula 2.0 07/13/24 20:58 28 Total Intake and Output 07/13/24 07/13/24 07/14/24 15:00 23:00 07:00 Intake Total 800 ml 420 ml Output Total 600 ml Balance 800 ml -180 ml medications Current Medications Medications Dose Ordered Sig/Dano Route Start Time Stop Time Status Last Admin Dose Admin Albuterol 2.5 mg Q4HPRN PRN NEB 07/12/24 21:15 07/13/24 20:58 2.5 MG Ipratropium [place] 0.5 mg Q4HPRN PRN NEB 07/12/24 21:15 07/13/24 20:58 0.5 MG Atorvastatin Calcium 20 mg HS PO 07/13/24 22:00 07/13/24 21:31 20 MG Diagnostic Test (Pha) 1 strip ACHS 07/12/24 22:00 07/14/24 06:29 1 STRIP Insulin Human Regular ACHS SC 07/12/24 22:00 07/14/24 06:29 3 UNITS Dextrose 50 ml UD PRN IV 07/12/24 21:15 Sodium Chloride 10 ml Q8HR IV 07/12/24 22:00 07/14/24 06:28 10 ML Acetaminophen/ Hydrocodone Bitart 1 tab Q4HP PRN PO 07/12/24 21:15 07/13/24 01:01 1 TAB Ondansetron HCl 4 mg Q4HP PRN IV 07/12/24 21:15 Docusate Sodium 100 mg BIDPRN PRN PO 07/12/24 21:15 Acetaminophen 500 mg Q6HP PRN PO 07/12/24 21:15 Nitroglycerin 0.4 mg Q5MINP PRN SL 07/12/24 23:00 Morphine Sulfate 2 mg Q30M PRN IV 07/12/24 23:00 Azithromycin 250 ml @ 125 mls/hr DAILY IV 07/13/24 10:00 07/16/24 23:55 07/13/24 10:11 125 MLS/HR Insulin Glargine 10 units DAILY@1000 SC 07/14/24 10:00 Ceftriaxone Sodium 50 ml @ 100 mls/hr DAILY@09 IV 07/14/24 09:00 Pantoprazole Sodium 40 mg DAILY@0600 PO 07/14/24 06:00 07/14/24 06:29 40 MG Examination: GENERAL:Abnormal, HEENT:Abnormal, LUNGS:Abnormal, CVS:Abnormal, ABDOMEN:Abnormal laboratory and microbiology Laboratory Tests 07/13/24 04:24 Test 07/13/24 04:24 Range/Units Serum Glucose 210 H 74-106 mg/dL Problem List/Assessment/Plan Problem List/Assessment/Plan cad ACS htn hl rcommend asa 81 mg plavix 75 mg daily atorvastatin high dose isosorbide ranexa beta jigar outpt eval at [facility] for high risk pci vs cabg---please dw social work /case reviewer for HMO designation and ideally get appt set up or approvde prior to DC home Plan discussed with: Patient My Orders My Orders Orders - DANILO BLAND MD Procedure Category Date Status Time Cl Coronary Cath W/O CL 07/13/[address] [facility] 18:06 Investigator Internal Affairs: Obtain ORDERS 07/13/24 Transmitted Consent For: 18:06 Cl Left Heart Cath CL 07/14/24 Taken 07:29 Post Cath Vital Signs ROSETTA 07/14/24 In Process Q 15min Post Cath Activity ROSETTA 07/14/24 In Process Protocol 11:20 Communication Order ORDERS 07/14/24 Transmitted 11:20 Consistent DIET 07/14/24 Transmitted [facility]Diabetes Lunch Date of Service: Jul 14, 2024 Billing Provider: DANILO BLAND MD Common Visit Codes: NOT BILLABLE DANILO BLAND MD Jul 14, 2024 11:28
[2024-07-14] MEDS: INSULIN LANTUS (GLARGINE) 1 /0.01ml (100units/ml) SC SCH (12:39)
[2024-07-14] MEDS: cefTRIAXone 1GM/50ML D5W 50 ML IV SCH (13:00)
--- NOTE | 2024-07-14 15:17 | ECG ---
[facility] Test Date: 2024-07-12 Test Time: 19:07:10 Pat Name: MISHEL CALVIN Department: ED Room: 0248T A Gender: M [employer]vass Manager: YENNI : 1940 Requested By: SIMON PRETTY Order Number: [id number] Reading MD: Mario Link Measurements Intervals [place] Rate: 95 P: 35 MA: 203 QRS: -46 QRSD: 121 T: 104 QT: 348 QTc: 438 Interpretive Statements Sinus rhythm LVH with IVCD, LAD and secondary repol abnrm inferior lateral ST segment changes are nonspecific. Probable RV involvement, suggest recording right precordial leads Baseline wander in lead(s) V1 Electronically Signed On 07-17-2024 11:06:09 PST by Mario Link Please click the below link to view image of tracing.
[2024-07-14] MEDS ORDERED: ASPI1TAB19 PO (16:52)
[2024-07-14] MEDS ORDERED: AUG875T PO (16:52)
[2024-07-14] MEDS ORDERED: RANO500T3 PO (16:52)
[2024-07-14] MEDS ORDERED: ISOS1TAB28 PO (17:09)
--- NOTE | 2024-07-14 17:25 | DVHDSRES ---
Discharge Summary Date of Admission Resident Creating Document: RANDY MESA RESIDENT Jul 12, 2024 at 22:53 Date of Discharge: Jul 14, 2024 Admitting Diagnosis Chest pain Labs/Diagnostic Data: Laboratory Results Test 07/14/24 12:28 07/13/24 15:07 07/13/24 10:50 07/13/24 08:30 POC Glucose 151 mg/dl (70-106) Troponin I High Sensitivity < 3 ng/L (</=54) Influenza Type A Antigen Negative (Negative) Influenza Type B Antigen Negative (Negative) SARS-CoV-2 Antigen (Rapid) Negative (NEGATIVE) Urine Color Yellow (Yellow) Urine Clarity Clear (Clear) Urine pH 6.0 (5.0-9.0) Urine Specific Gervais 1.023 (1.001-1.035) Urine Protein Trace (Negative) Urine Ketones Negative (Negative) Urine Blood Negative /uL (Negative) Urine Nitrite Negative (Negative) Urine Bilirubin Negative (Negative) Urine Urobilinogen Normal mg/dL (Negative) Urine Leukocyte Esterase Negative /uL (Negative) Urine RBC 3 /hpf (0 - 3) Urine WBC 2 /hpf (0 - 3) Urine Squamous Epithelial Cells Few /hpf (<5) Urine Bacteria None seen /hpf (None Seen) Urine Mucus Few (None Seen) Urine Glucose Trace mg/dL (Normal) Urine Opiates Screen Neg (NEGATIVE) Urine Fentanyl Screen Neg (NEGATIVE) Urine Barbiturates Screen Neg (NEGATIVE) Urine Phencyclidine Screen Neg (NEGATIVE) Urine Amphetamines Screen Neg (NEGATIVE) Urine Benzodiazepines Screen Neg (NEGATIVE) Urine Cocaine Screen Neg (NEGATIVE) Urine Cannabinoids Screen Neg (NEGATIVE) Test 07/13/24 04:24 White Blood Count 8.8 10^3/uL (4.4-10.8) Red Blood Count 4.66 10^6/uL (4.5-5.90) Hemoglobin 14.3 g/dL (13.5-17.5) Hematocrit 41.5 % (41.0-53.0) Mean Corpuscular Volume 89.1 fL (80.0-100.0) Mean Corpuscular Hemoglobin 30.7 pg (28.0-32.0) Mean Corpuscular Hemoglobin Concent 34.5 g/dL (32.0-36.0) Red Cell Distribution Width 13.6 % (11.8-14.3) Platelet Count 205 10^3/uL (140-450) Mean Platelet Volume 9.1 fL (6.9-10.8) Neutrophils (%) (Auto) 88.3 % (37.0-80.0) Lymphocytes (%) (Auto) 9.7 % (10.0-50.0) Monocytes (%) (Auto) 1.8 % (0.0-12.0) Eosinophils (%) (Auto) 0.0 % (0.0-7.0) Basophils (%) (Auto) 0.2 % (0.0-2.0) Neutrophils # (Auto) 7.8 10 ^3/uL (1.6-8.6) Lymphocytes # (Auto) 0.9 10 ^3/uL (0.4-5.4) Monocytes # (Auto) 0.2 10 ^3/uL (0-1.3) Eosinophils # (Auto) 0 10 ^3/uL (0-0.8) Basophils # (Auto) 0 10 ^3/uL (0-0.2) Nucleated Red Blood Cells 0.0 % Prothrombin Time 12.0 sec (9.3-11.8) Prothrombin Time INR 1.14 (0.9-1.15) Activated Partial Thromboplast Time 29.4 SEC (24.5-34.5) Sodium Level 135 mmol/L (136-145) Potassium Level 4.4 mmol/L (3.5-5.1) Chloride Level 105 mmol/L (98-107) Carbon Dioxide Level 22 mmol/L (20-31) Anion Gap 8 (5-15) Blood Urea Nitrogen 11 mg/dL (9-23) Creatinine 0.99 mg/dL (0.700-1.30) Glomerular Filtration Rate Calc 77 mL/min (>90) BUN/Creatinine Ratio 11.1 (10.0-20.0) Serum Glucose 210 mg/dL (74-106) Calcium Level 9.6 mg/dL (8.7-10.4) Total Bilirubin 1.0 mg/dL (0.2-1.0) Aspartate Amino Transferase (AST) 23 U/L (13-40) Alanine Aminotransferase (ALT) 38 U/L (7-40) Alkaline Phosphatase 96 U/L (46-116) B-Type Natriuretic Peptide 99.24 pg/mL (0-100) Total Protein 7.0 g/dL (5.7-8.2) Albumin 3.9 g/dL (3.2-4.8) Vitamin B12 Level 989 pg/mL (211-911) Vitamin D 25-Hydroxy 40.1 ng/mL (30.0-100) Thyroid Stimulating Hormone (TSH) 0.24 uIU/mL (0.55-4.78) Free Thyroxine (T4) Calculated 0.83 ng/dL (0.89-1.76) Free Triiodothyronine (T3) pg/mL 2.84 pg/mL (2.3-4.2) Other Laboratory Tests 07/13/24 04:24 Brief Hx & Hospital Course: This is a 83-year-old male patient with PMHx of CAD status post 6 SHANEL 2004 to 2016, history of CVA 2017 status post tPA, COPD on no home oxygen, diabetes mellitus type 2 for the past 15 years on Lantus, BPH status post TURP 2023 who presented to the ER with a chief complaint of chest pain and cough. Patient reports with the chest pain started 07/12 around 10:00 a.m. on rest which waxes and wanes in his located in epigastrium. Chest pain is pressure-like in nature and radiates to both of his shoulders, exacerbates on deep breathing and exertion but does not relieve on rest. He denies taking any nitroglycerin for the chest pain. Associated factors include nausea and dizziness but no vomiting/palpitation/diaphoresis. Patient also reports chronic shortness of breath on activities of daily living and orthopnea and PND, also reports chronic cough with green/yellow phlegm. He did not increase his inhaler usage recently. 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 PMH/PSH: See HPI Social history Works as a teacher, Lives with his , quit smoking, denies drinking or illicit drug use Home medications: Lisinopril 20 mg daily, atorvastatin 40 mg daily, omeprazole 20 mg daily, Lantus 30 units daily During hospital workup, EKG was completed which shows regular rhythm, nonspecific ST changes. Troponins 4, 4 , 5. BNP 99. Echocardiogram was ordered and Cardiology was consulted, Dr. Lewis recommended left heart catheterization which the patient underwent 07/14/2024 which revealed severe LAD stenosis. Dr. Lewis recommended Aggressive risk factor modification and medical management for the patient. DAPT x 1 year uninterrupted along with recommend eval at [facility] for CABG eval vs PCI complex . Patient was started on high dose anti anginal therapy, statin, Ranexa and isosorbide mononitrate. He was also diagnosed with community-acquired pneumonia, for which he received IV ceftriaxone and azithromycin starting 07/13 along with nebulized treatment with ipratropium and albuterol. COVID and influenza testing was negative. Patient is advised to avoid work until he gets seen by higher level of care and a work note and leave of absence as provided. Patient's primary care physician Dr. Garland's office was called on 07/14/2024 at 1:00 p.m. for an urgent referral to [facility] as outpatient and the referral was sent on the same day for authorization per Dr Garland's office staff/Eloise. Dr. Lewis cleared the patient for discharge, and 07/14/2024-patient is hemodynamically stable, clinically stable and has no active complaint. Therefore he has been discharged to home with the recommendation to follow up with higher level of care for CABG within 1 week. Follow up with PCP/DC clinic within 1 week. Patient is being discharged on aspirin 81 mg daily, isosorbide mononitrate 30 mg daily, ranolazine 500 mg b.i.d. and amoxicillin/clavulanate 870 mg p.o. twice daily along with the continuation of his home medications which includes atenolol, atorvastatin 40 mg, clopidogrel 75 mg daily, furosemide 20 mg, glipizide, insulin Lantus, lisinopril 20 mg, nitroglycerin 0.4 mg SL, omeprazole 20 mg daily. Examination on the day of discharge: Elderly male patient lying in bed, in no acute distress General: Well-built, afebrile, palor, mucosae are moist Cardiovascular: Regular S1 and S2. No murmurs, gallops or rubs. No JVD elevation. No pedal edema Respiratory: Normal B/L air entry on room air. Dull breath sounds on bibasilar auscultation. Abdomen: Soft, nontender, nondistended, normoactive bowel sounds, no rebound tenderness, no organomegaly, no masses Genitourinary: Deferred MSK/skin: Mobilizes 4 limbs. Skin is dry and warm Neurological: No motor, no sensitive deficits, normal speech. Pupils are isocoric and reactive. Psych/Mental Status: A/Ox4 Goals of care discussed with the patient and his for 20 minutes; full code Case discussed with Dr. Tan Consults/Reason for consult Cardiology consulted for chest pain Operations or Procedures ORDERING PHYSICIAN: SIMON PRETTY MD PROCEDURE(s): CXRP - CHEST PORTABLE REASON: CHEST PAIN ORDER NUMBER(s): [id number], ACCESSION NUMBER(s): [id number] CHEST RADIOGRAPH Indication:CHEST PAIN Technique: Single frontal view of the chest was obtained Comparison: None FINDINGS: Lines and Tubes: None Lungs: Bibasilar infiltrates and or atelectasis. Pleura: No pleural effusions. No pneumothorax. Cardiomediastinal contours: Upper limits of normal. Bones: No acute osseous abnormality. IMPRESSION: 1. Marginal cardiomegaly. 2. Bibasilar infiltrates and or atelectasis. ATED BY: KRYSTLE MICHELLE Jr., DO DICTATED DATE/TIME: 07/12/241949 SIGNED BY: KRYSTLE MICHELLE Jr., SIGNED DATE/TIME: 07/12/241949 CC: Condition at Discharge: Fair Final Diagnosis/Problems List Acute chest pain secondary to CAD with severe LAD stenosis status post Coronary angiogram, left heart catheterization 07/14/2024 History of CVA 1 year back status post tPA CAD status post 6DES [id number] Community-acquired pneumonia, Gram-positive and Gram-negative Diabetes mellitus type 2-hemoglobin A1c 6.4 05/20/24 Dyslipidemia Hypertension GERD Discharge Disposition: Home Discharge Instruct/Medications Diet: Cardiac 2g Na,low cholest Activity: No Restrictions, As Tolerated Follow Up/Referral: f/u with PCP/DC clinic within 1 week f/u with higher level of care for CABG within 1 week Medications: high dose anti anginal therapy, statin, Ranexa and isosorbide mononitrate; to continue rest of home medications Discharge Statement: "Patient was advised to return to the ER or call 911 if any headaches, dizziness, shortness of breath, chest pain, abdominal pain, bleeding, fevers, or worsening of medical condition. Patient was counseled about treatment plan, medications, possible side effects, patientverbalized understanding. All questions were answered to the best of my ability. This discharge took greater then 30 minutes in planning, reviewing documentation, counseling the patient, and discussing with other team members." ASSESSMENT ASSESSMENT Assessment CAD Addendum Addendum Addendum I was physically present for the coughlin portions of the service provided to patient by THE RESIDENT. I have reviewed the documentation, discussed the case with resident and agree with the resident's documentation except as noted. Also the patient's clinical case was discussed with the patient's nurse. This medical document was created using an electronic medical record system with computerized dictation system. Although this document has been carefully reviewed, there might still be some phonetic and typographical errors. These areas are purely typographical due to imperfections of the software programs, and do not reflect any compromise in the patient's medical care. Late signature. Date of Service: Jul 14, 2024 Billing Provider: JOHNNY TAN MD Common Visit Codes: 70927-SNS/OBS DISCH DAY >30min Secondary Visit Codes: 69301-HSDGQAWU CARE PLAN 30 MINUTES (20 minutes) RANDY MESA RESIDENT Jul 14, 2024 17:25 JOHNNY TAN MD Jul 15, 2024 04:59
[2024-07-14] MEDS ORDERED: DEXTROSE (50%) 50ML SYRG IV PRN ×3 (17:45→18:00)
[2024-07-14] MEDS: ACCU-CHEK COMFORT CURVE STRIP VI SCH (18:09)
[2024-07-14] MEDS: InsuLIN REG 1unit/0.01ml Soln (100units/ml) SC SCH (18:14)
[2024-07-14] MEDS ORDERED: ACCU-CHEK COMFORT CURVE STRIP VI SCH ×3 (20:00→22:00)
[2024-07-14] MEDS ORDERED: InsuLIN REG 1unit/0.01ml Soln (100units/ml) SC SCH ×4 (20:00→22:00)
[2024-07-15] MEDS ORDERED: InsuLIN REG 1unit/0.01ml Soln (100units/ml) SC SCH ×2 (07:00)
== END 2024-07-14 20:20 | disposition home or self-care (01) | DRG 286 ==
LOC: ER 19:03 → TELE 22:53 → TELE-EAST 23:36
PROVIDERS: ADMIT Internal Medicine; ATTEND Internal Medicine
PROC: 4A023N7 Measurement of Cardiac Sampling and Pressure, Left Heart, Percutaneous Approach (ICD-10-PCS; principal; 2024-07-14)
PROC: B211YZZ Fluoroscopy of Multiple Coronary Arteries using Other Contrast (ICD-10-PCS; 2024-07-14)
DX: I25.10 Atherosclerotic heart disease of native coronary artery without angina pectoris (principal); J15.69 Pneumonia due to other Gram-negative bacteria; J15.9 Unspecified bacterial pneumonia; J44.0 Chronic obstructive pulmonary disease with (acute) lower respiratory infection; J44.1 Chronic obstructive pulmonary disease with (acute) exacerbation; J98.4 Other disorders of lung; E11.22 Type 2 diabetes mellitus with diabetic chronic kidney disease; N18.9 Chronic kidney disease, unspecified; N40.0 Benign prostatic hyperplasia without lower urinary tract symptoms; K21.9 Gastro-esophageal reflux disease without esophagitis; I12.9 Hypertensive chronic kidney disease with stage 1 through stage 4 chronic kidney disease, or unspecified chronic kidney disease; Z79.4 Long term (current) use of insulin; Z86.73 Personal history of transient ischemic attack (TIA), and cerebral infarction without residual deficits; Z91.041 Radiographic dye allergy status; Z98.61 Coronary angioplasty status; Z82.0 Family history of epilepsy and other diseases of the nervous system; Z88.8 Allergy status to other drugs, medicaments and biological substances
CPT/HCPCS: 36415; 71045; 80053; 80307; 81001; 82306; 82607; 82947; 82962; 83880; 84439; 84443; 84481; 84484; 85025; 85610; 85730; 86850; 86900; 86901; 87426; 87804; 93005; 93306; 93458; 94640; 96374; 97163; 99152; G0378; J1815; J2250; J3490; Q9967

== ENCOUNTER → 2024-08-12 | Outpatient (CLI) | payer OTHER ==
[~2024-08-12] MED LIST changes: +ALBUPOW25 XX; +ASPI1TAB19 PO; +AUG875T PO; +ISOS1TAB28 PO; +MELO15TA29 PO; +NITR0.4S29 SL; +RANO500T3 PO; +SAWCAP2 PO
[2024-08-12 07:20] LABS: Basophils # (auto) 0.1 10 ^3/uL (0-0.2); Basophils % (auto) 0.8 % (0.0-2.0); Eosinophils # (auto) 0.4 10 ^3/uL (0-0.8); Eosinophils % (auto) 3.7 % (0.0-7.0); Hematocrit 41.6 % (41.0-53.0); Hemoglobin 14.4 g/dL (13.5-17.5); Lymphocytes # (auto) 2.1 10 ^3/uL (0.4-5.4); Lymphocytes % (auto) 20.4 % (10.0-50.0); Mean Corpuscular Hemoglobin 30.8 pg (28.0-32.0); Mean Corpuscular Hgb Conc. 34.5 g/dL (32.0-36.0); Mean Corpuscular Volume 89.3 fL (80.0-100.0); Monocytes # (auto) 0.9 10 ^3/uL (0-1.3); Monocytes % (auto) 8.9 % (0.0-12.0); Neutrophils % (auto) 66.2 % (37.0-80.0); Nucleated Red Blood Cells % 0.1 %; Platelet Count (auto) 252 10^3/uL (140-450); Red Blood Cells 4.66 10^6/uL (4.5-5.90); Red Cell Distribution Width 14.7 % (11.8-14.3); White Blood Cell 10.5 10^3/uL (4.4-10.8)
[2024-08-12 07:37] LABS: Alanine Aminotransferase 44 U/L (7-40); Alkaline Phosphatase 95 U/L (46-116); Anion Gap 10 (5-15); BUN/Creatinine Ratio 19.8 (10.0-20.0); Blood Urea Nitrogen 26 mg/dL (9-23); Calcium 10.6 mg/dL (8.7-10.4); Carbon Dioxide 24 mmol/L (20-31); Chloride 102 mmol/L (98-107); Glucose 110 mg/dL (74-106); Potassium 4.3 mmol/L (3.5-5.1); Sodium 136 mmol/L (136-145); Triglycerides 118 mg/dL (< 150)
[2024-08-12 07:38] LABS: Albumin 4.4 g/dL (3.2-4.8); Aspartate Aminotransferase 26 U/L (13-40); Cholesterol 104 mg/dL (< 200); LDL Cholesterol 39 mg/dL (< 100)
[2024-08-12 07:39] LABS: Bilirubin, Total 1.3 mg/dL (0.2-1.0); HDL Cholesterol 44 mg/dL (40-59); Total Protein 7.6 g/dL (5.7-8.2)
== END | disposition home or self-care (01) ==
LOC: LAB 06:56
PROVIDERS: ATTEND Internal Medicine
DX: E11.9 Type 2 diabetes mellitus without complications (principal)
CPT/HCPCS: 36415; 80053; 80061; 85025

== ENCOUNTER → 2024-09-01 | Outpatient (CLI) | payer OTHER ==
[2024-09-01 10:43] LABS: Anion Gap 10 (5-15); Carbon Dioxide 24 mmol/L (20-31); Chloride 102 mmol/L (98-107)
[2024-09-01 10:44] LABS: Calcium 10.2 mg/dL (8.7-10.4)
[2024-09-01 10:49] LABS: BUN/Creatinine Ratio 21.4 (10.0-20.0)
[2024-09-01 11:02] LABS: Blood Urea Nitrogen 31 mg/dL (9-23); Glucose 146 mg/dL (74-106); Sodium 136 mmol/L (136-145)
== END | disposition home or self-care (01) ==
LOC: LAB 09:42
PROVIDERS: ATTEND Internal Medicine
DX: E11.9 Type 2 diabetes mellitus without complications (principal); E78.5 Hyperlipidemia, unspecified
CPT/HCPCS: 36415; 80048; 83036

== ENCOUNTER → 2024-09-15 | Outpatient (CLI) | payer OTHER ==
[2024-09-15 16:54] LABS: Chloride 103 mmol/L (98-107); Potassium 4.1 mmol/L (3.5-5.1); Sodium 137 mmol/L (136-145)
[2024-09-15 16:55] LABS: Anion Gap 8 (5-15); Carbon Dioxide 26 mmol/L (20-31)
[2024-09-15 16:56] LABS: Calcium 10.2 mg/dL (8.7-10.4)
[2024-09-15 17:00] LABS: BUN/Creatinine Ratio 12.8 (10.0-20.0); Blood Urea Nitrogen 17 mg/dL (9-23)
[2024-09-15 17:07] LABS: Glucose 158 mg/dL (74-106)
== END | disposition home or self-care (01) ==
LOC: LAB 15:55
PROVIDERS: ATTEND Internal Medicine
DX: E11.9 Type 2 diabetes mellitus without complications (principal); R42 Dizziness and giddiness
CPT/HCPCS: 36415; 80048

== ENCOUNTER → 2024-10-21 | Outpatient (CLI) | payer OTHER | END | disposition home or self-care (01) | LOC: LAB 15:39 | PROVIDERS: ATTEND Urology | DX: N40.0 Benign prostatic hyperplasia without lower urinary tract symptoms (principal) | CPT/HCPCS: 84153 ==

== ENCOUNTER → 2024-11-19 | Outpatient (CLI) | payer OTHER ==
[2024-11-19 07:55] LABS: Anion Gap 7 (5-15); Carbon Dioxide 28 mmol/L (20-31); Chloride 104 mmol/L (98-107); Potassium 4.2 mmol/L (3.5-5.1); Sodium 139 mmol/L (136-145)
[2024-11-19 07:56] LABS: Calcium 10.1 mg/dL (8.7-10.4)
[2024-11-19 08:01] LABS: BUN/Creatinine Ratio 13.6 (10.0-20.0); Blood Urea Nitrogen 16 mg/dL (9-23)
[2024-11-19 08:03] LABS: Glucose 131 mg/dL (74-106)
[2024-11-19 08:12] LABS: Creatinine, Urine 63.07 mg/dL (30.0-125.0)
[2024-11-19 11:25] LABS: Free T3 3.94 pg/mL (2.3-4.2); Free T4 (Free Thyroxine) 0.99 ng/dL (0.89-1.76)
== END | disposition home or self-care (01) ==
LOC: LAB 07:15
PROVIDERS: ATTEND Internal Medicine
DX: I13.0 Hypertensive heart and chronic kidney disease with heart failure and stage 1 through stage 4 chronic kidney disease, or unspecified chronic kidney disease (principal); E11.22 Type 2 diabetes mellitus with diabetic chronic kidney disease; N18.31 Chronic kidney disease, stage 3a; I50.9 Heart failure, unspecified; J44.9 Chronic obstructive pulmonary disease, unspecified
CPT/HCPCS: 36415; 80048; 82043; 82570; 83036; 84439; 84443; 84481

== ENCOUNTER → 2025-01-05 | Outpatient (CLI) | payer OTHER ==
[2025-01-05 07:49] LABS: Chloride 105 mmol/L (98-107); Potassium 4.6 mmol/L (3.5-5.1); Sodium 141 mmol/L (136-145)
[2025-01-05 07:50] LABS: Anion Gap 8 (5-15); Carbon Dioxide 28 mmol/L (20-31)
[2025-01-05 07:51] LABS: Calcium 10.1 mg/dL (8.7-10.4)
[2025-01-05 07:56] LABS: Blood Urea Nitrogen 16 mg/dL (9-23)
[2025-01-05 07:59] LABS: Glucose 145 mg/dL (74-106)
== END | disposition home or self-care (01) ==
LOC: LAB 07:13
PROVIDERS: ATTEND Internal Medicine
DX: E11.9 Type 2 diabetes mellitus without complications (principal)
CPT/HCPCS: 36415; 80048

== ENCOUNTER 2025-02-24 07:18 | Outpatient (CLI) | payer OTHER ==
[2025-02-24 07:34] LABS: Basophils # (auto) 0.1 10 ^3/uL (0-0.2); Basophils % (auto) 0.9 % (0.0-2.0); Eosinophils # (auto) 0.5 10 ^3/uL (0-0.8); Eosinophils % (auto) 5.7 % (0.0-7.0); Hematocrit 39.5 % (41.0-53.0); Hemoglobin 13.7 g/dL (13.5-17.5); Lymphocytes # (auto) 1.9 10 ^3/uL (0.4-5.4); Lymphocytes % (auto) 21.7 % (10.0-50.0); Mean Corpuscular Hemoglobin 30.9 pg (28.0-32.0); Mean Corpuscular Hgb Conc. 34.7 g/dL (32.0-36.0); Monocytes # (auto) 0.6 10 ^3/uL (0-1.3); Monocytes % (auto) 7.6 % (0.0-12.0); Neutrophils # (auto) 5.5 10 ^3/uL (1.6-8.6); Neutrophils % (auto) 64.1 % (37.0-80.0); Platelet Count (auto) 199 10^3/uL (140-450); Red Blood Cells 4.44 10^6/uL (4.5-5.90); Red Cell Distribution Width 14.8 % (11.8-14.3); White Blood Cell 8.5 10^3/uL (4.4-10.8)
[2025-02-24 08:22] LABS: Alanine Aminotransferase 21 U/L (7-40); Alkaline Phosphatase 92 U/L (46-116); Anion Gap 7 (5-15); Aspartate Aminotransferase 20 U/L (<34); Bilirubin, Total 0.6 mg/dL (0.2-1.0); Blood Urea Nitrogen 13 mg/dL (9-23); Calcium 9.5 mg/dL (8.7-10.4); Carbon Dioxide 27 mmol/L (20-31); Sodium 142 mmol/L (136-145)
[2025-02-24 08:24] LABS: Chloride 108 mmol/L (98-107); Glucose 130 mg/dL (74-106)
== END 2025-02-24 17:00 | disposition home or self-care (01) ==
LOC: LAB 07:18
PROVIDERS: ATTEND Internal Medicine
DX: I12.9 Hypertensive chronic kidney disease with stage 1 through stage 4 chronic kidney disease, or unspecified chronic kidney disease (principal); E11.22 Type 2 diabetes mellitus with diabetic chronic kidney disease; N18.31 Chronic kidney disease, stage 3a; J44.9 Chronic obstructive pulmonary disease, unspecified
CPT/HCPCS: 36415; 80053; 83036; 85025

== ENCOUNTER 2025-03-26 09:58 | Outpatient (CLI) | payer OTHER ==
[2025-03-26 10:11] LABS: Hematocrit 38.1 % (41.0-53.0); Hemoglobin 13.2 g/dL (13.5-17.5); Mean Corpuscular Hemoglobin 30.7 pg (28.0-32.0); Mean Corpuscular Volume 88.6 fL (80.0-100.0); Nucleated Red Blood Cells % 0.2 %
== END 2025-03-26 17:00 | disposition home or self-care (01) ==
LOC: LAB 09:58
PROVIDERS: ATTEND Internal Medicine
DX: J96.11 Chronic respiratory failure with hypoxia (principal)
CPT/HCPCS: 36415; 85025

== ENCOUNTER 2025-05-18 06:05 | Outpatient (CLI) | payer OTHER ==
[2025-05-18 07:22] LABS: Chloride 105 mmol/L (98-107); Potassium 3.7 mmol/L (3.5-5.1); Sodium 141 mmol/L (136-145)
[2025-05-18 07:23] LABS: Anion Gap 8 (5-15); Carbon Dioxide 28 mmol/L (20-31)
[2025-05-18 07:24] LABS: Calcium 8.8 mg/dL (8.7-10.4)
[2025-05-18 07:29] LABS: BUN/Creatinine Ratio 12.1 (10.0-20.0); Blood Urea Nitrogen 14 mg/dL (9-23)
[2025-05-18 07:30] LABS: Glucose 124 mg/dL (74-106)
== END 2025-05-18 17:00 | disposition home or self-care (01) ==
LOC: LAB 06:05
PROVIDERS: ATTEND Internal Medicine
DX: J44.9 Chronic obstructive pulmonary disease, unspecified (principal)
CPT/HCPCS: 36415; 80048

== ENCOUNTER → 2025-06-23 | Outpatient (CLI) | payer OTHER ==
[2025-06-23 10:54] LABS: Anion Gap 9 (5-15); Carbon Dioxide 27 mmol/L (20-31); Chloride 106 mmol/L (98-107); Potassium 4.3 mmol/L (3.5-5.1); Sodium 142 mmol/L (136-145)
[2025-06-23 10:55] LABS: Calcium 9.3 mg/dL (8.7-10.4)
[2025-06-23 11:00] LABS: BUN/Creatinine Ratio 11.7 (10.0-20.0); Blood Urea Nitrogen 13 mg/dL (9-23); Glucose 105 mg/dL (74-106)
== END | disposition home or self-care (01) ==
LOC: LAB 09:55
PROVIDERS: ATTEND Internal Medicine
DX: I25.118 Atherosclerotic heart disease of native coronary artery with other forms of angina pectoris (principal)
CPT/HCPCS: 36415; 80048; 83880